=== PATIENT | female | born 1990 | race Caucasian/White ===

== ENCOUNTER 2018-04-30 23:40 | Emergency (ER) | payer SELFPAY ==
[2018-05-01] MEDS ORDERED: Augmentin 875-125 Tablet PO ONE (00:03)
--- NOTE | 2018-05-01 00:09 | ERPHSYRPT ---
- History of Present Illness Time Seen by Provider: 04/30/18 23:54 Source: patient Patient Subjective Stated Complaint: pt co pain, redness, and edema to left 4th finger for approx 1 week; unknown origin; denies any trauma to finger. Triage Nursing Assessment: pt a&o x3; skin p, w, & d; ambulated to room per self ; no other distress at this time. Physician History: PATIENT COMPLAINS OF PAIN, SWELLING WITH REDNESS OF NAIL FOLD OF LEFT RING FINGER OVER THE PAST WEEK. ADMITS TO USING A NEEDLE TO PERFORATE SWELLING OF NAIL FOLD. DENIES FEVER, TRAUMA OR INJURY. Occurred: last week Method of Injury: other (DENIES INJURY) Severity of Pain-Max: mild Extremities Pain Location: 4th finger: left Modifying Factors: Improves With: nothing Associated Symptoms: none Allergies/Adverse Reactions: BEES Allergy (Intermediate, Uncoded 04/30/18 23:56) Swelling Home Medications: Eslicarbazepine Acetate [Aptiom] 1,600 mg PO DAILY 03/03/16 [History] Hx Tetanus, Diphtheria Vaccination/Date Given: Yes Hx Influenza Vaccination/Date Given: No Hx Pneumococcal Vaccination/Date Given: No Immunizations Up to Date: No - Review of Systems Musculoskeletal: Joint Redness, Joint Pain, Joint Swelling Neurological: No Symptoms Psychological: No Symptoms Hematologic/Lymphatic: No Symptoms - Past Medical History Pertinent Past Medical History: Yes Neurological History: Seizures, Other ENT History: No Pertinent History Cardiac History: No Pertinent History Respiratory History: Asthma Endocrine Medical History: No Pertinent History Musculoskeletal History: No Pertinent History GI Medical History: No Pertinent History History: Other Psycho-Social History: Anxiety, Depression, Other Female Reproductive Disorders: Other Other Medical History: brain tumor remove in September 2013 - Past Surgical History Past Surgical History: Yes Neuro Surgical History: Neurological Surgery Cardiac: No Pertinent History Respiratory: No Pertinent History Gastrointestinal: No Pertinent History Genitourinary: No Pertinent History Musculoskeletal: No Pertinent History Female Surgical History: No Pertinent History Other Surgical History: D&C - Social History Smoking Status: Current every day smoker How long have you smoked: 14 years Exposure to second hand smoke: Yes Drug Use: marijuana Patient Lives Alone: No - Female History Hx Last Menstrual Period: 3 weeks ago Hx Now: No - Nursing Vital Signs Nursing Vital Signs: Initial Vital Signs Temperature 98.5 F 04/30/18 23:45 Pulse Rate 90 04/30/18 23:45 Respiratory Rate 16 04/30/18 23:45 Blood Pressure 115/75 04/30/18 23:45 O2 Sat by Pulse Oximetry 98 04/30/18 23:45 Pain Scale Pain Intensity 5 - Physical Exam General Appearance: no apparent distress Hand Exam: infection, soft tissue tenderness, swelling (OF NAIL FOLD PROXIMAL AND RADIAL ASPECT DISTAL PHALANGX LEFT RING FINGER, NO DRAINAGE.) Neuro/Tendon Exam: normal sensation SpO2 Interpretation: normal SpO2: 98 Oxygen Delivery: Room Air - Progress Progress Note: 05/01/18 00:07 ADMINISTERED AUGMENTIN 875MG ORALLY. Counseled pt/family regarding: diagnosis, need for follow-up - Departure Time of Disposition: 00:20 Departure Disposition: Home Clinical Impression: LEFT RING FINGER CELLULITS Condition: Stable Critical Care Time: No Referrals: GHISLAINE DSOUZA [Primary Care Provider] - Additional Instructions: APPLY WARM COMPRESS TO FINGER SWELLING 4 TIMES DAILY FOR 5 DAYS. TYLENOL OR MOTRIN NEEDED FOR PAIN. ANTIBIOTIC AUGMENTIN 875MG TWICE DAILY FOR 10 DAYS. CONSULT YOUR PRIMARY CARE PROVIDER FOR FOLLOWUP IN 4-5 DAYS. RETURN TO EMERGENCY FOR INCREASING INFECTION, REDNESS, SWELLING OR DRAINAGE. Prescriptions: Amox Tr/Potass Clav. 875 mg [Augmentin 875-125 Tablet] 875 mg PO BID #20 tablet
[2018-05-01 00:39] VITALS: BP 141/75; PULSE 78; O2SAT 99
== END 2018-05-01 00:42 | disposition home or self-care (01) ==
LOC: ED 23:40
DX: L03.011 Cellulitis of right finger (principal); M79.644 Pain in right finger(s); R56.9 Unspecified convulsions
CPT/HCPCS: 99283; A9270-GY

== ENCOUNTER 2019-07-26 22:09 | Emergency (ER) | payer OTHER ==
[2019-07-26 23:30] VITALS: BP 111/63; PULSE 71; O2SAT 98
[2019-07-26 23:39] LABS: Appearance CLOUDY (CLEAR); Bacteria MODERATE /HPF (NEGATIVE); Bilirubin NEGATIVE (NEGATIVE); Blood NEGATIVE Ery/ul (0-5); Epithelial Cells RARE /HPF (FEW); Glucose NEGATIVE (NEGATIVE); Ketones NEGATIVE (NEGATIVE); Leukocyte Esterase NEGATIVE (NEGATIVE); Mucus MODERATE /HPF (NEGATIVE); Nitrite POSITIVE (NEGATIVE); Protein,Urine Dip 30 (Negative); Specific Gravity 1.023 (1.005-1.025); Urobilinogen 4 mg/dL (0-1)
[2019-07-26 23:40] LABS: Budding Yeast Few /HPF (NEGATIVE)
[2019-07-26] MEDS ORDERED: BACTRIM DS TABLET PO STA (23:48)
[2019-07-26] MEDS ORDERED: PYRIDIUM 200 MG PO SCH (23:48)
--- NOTE | 2019-07-26 23:52 | ERPHSYRPT ---
- History of Present Illness Time Seen by Provider: 07/26/19 23:00 Source: patient Exam Limitations: no limitations Patient Subjective Stated Complaint: pt states for the last 3 days she has had pressure and discomfort in the bladder area, states she is voiding frequent small amts, and has sharp pain with urination. Triage Nursing Assessment: pt alert and oriented, answers questions approp. pt ambulatory with steady gait noted. respirations nonlabored with lungs cta. no tendernes noted to lower back. urine cloudy and orange. Physician History: Patient has had dysuria, frequency and suprapubic discomfort for the past 3 days. Patient does not get frequent UTIs. She has not been evaluated or treated prior to coming into the emergency department Timing/Duration: day(s) (3) Activites at Onset: none Quality: aching, burning Onset Location: suprapubic Pain Radiation: none Severity of Pain-Max: moderate Severity of Pain-Current: mild Prior abdominal problems: none Modifying Factors: Worsens With: urinating Associated Symptoms: abdominal pain (suprapubic area only), dysuria, urinary frequency, No fever, No chills, No diaphoresis, No nausea, No vomiting, No nocturia, No polyuria, No , No loss of bladder control, No lower back pain, No lumps, No mass, No swelling, No syncope, No vaginal discharge, No vaginal fluid leakage Allergies/Adverse Reactions: BEES Allergy (Intermediate, Uncoded 04/30/18 23:56) Swelling Home Medications: Eslicarbazepine Acetate [Aptiom] 1,600 mg PO DAILY 03/03/16 [History] Hx Tetanus, Diphtheria Vaccination/Date Given: Yes Hx Influenza Vaccination/Date Given: No Hx Pneumococcal Vaccination/Date Given: No - Review of Systems Constitutional: No Fever, No Chills, No Fatigue Eyes: No Eye Pain, No Vision Changes Ears, Nose, & Throat: No Mouth Swelling, No Painful Swallowing Respiratory: No Cough, No Dyspnea Cardiac: No Chest Pain, No Syncope Abdominal/Gastrointestinal: No Nausea, No Vomiting, No Hematemesis, No Hematochezia, No Melena Genitourinary Symptoms: Dysuria, Frequency, No Hematuria, No Urinary Retention, No Flank Pain Musculoskeletal: No Back Pain, No Neck Pain Skin: No Rash, No Skin Lesions Neurological: No Focal Weakness, No Lethargy, No Paralysis, No Parasthesia, No Tremors Psychological: No Anxiety Hematologic/Lymphatic: No Easy Bleeding, No Easy Bruising All Other Systems: Reviewed and Negative - Past Medical History Pertinent Past Medical History: Yes Neurological History: Seizures, Other ENT History: No Pertinent History Cardiac History: No Pertinent History Respiratory History: Asthma Endocrine Medical History: No Pertinent History Musculoskeletal History: No Pertinent History GI Medical History: No Pertinent History History: Other Psycho-Social History: Anxiety, Depression, Other Female Reproductive Disorders: Other Other Medical History: brain tumor remove in September 2013 - Past Surgical History Past Surgical History: Yes Neuro Surgical History: Neurological Surgery Cardiac: No Pertinent History Respiratory: No Pertinent History Gastrointestinal: No Pertinent History Genitourinary: No Pertinent History Musculoskeletal: No Pertinent History Female Surgical History: No Pertinent History Other Surgical History: D&C - Social History Smoking Status: Current every day smoker How long have you smoked: 15 years Exposure to second hand smoke: Yes Drug Use: marijuana Patient Lives Alone: No - Female History Hx Last Menstrual Period: 2 weeks Hx Now: No - Nursing Vital Signs Nursing Vital Signs: Initial Vital Signs Temperature 97.9 F 07/26/19 22:37 Pulse Rate 104 H 07/26/19 22:37 Respiratory Rate 18 07/26/19 22:37 Blood Pressure 115/77 07/26/19 22:37 O2 Sat by Pulse Oximetry 100 07/26/19 22:37 Pain Scale Pain Intensity 0 - Physical Exam General Appearance: no apparent distress, alert Eye Exam: PERRL/EOMI, eyes nml inspection, No scleral icterus Ears, Nose, Throat Exam: pharynx normal, moist mucous membranes Neck Exam: normal inspection, non-tender, supple, full range of motion, No meningismus, No Brudzinski, No limited range of motion Respiratory Exam: normal breath sounds, lungs clear, airway intact, No chest tenderness, No respiratory distress, No diminished breath sounds, No accessory muscle use, No prolonged expirations, No crackles/rales, No rhonchi, No wheezing , No stridor Cardiovascular Exam: regular rate/rhythm, normal heart sounds, normal peripheral pulses, capillary refill <2 sec, No murmur Gastrointestinal/Abdomen Exam: soft, normal bowel sounds, No tenderness, No distention, No mass, No guarding, No ecchymosis, No pulsatile mass, No rebound, No hepatomegaly Extremity Exam: normal inspection, normal range of motion, pelvis stable, No contusions, No calf tenderness, No deformities, No inflammation, No swelling Neurologic Exam: alert, oriented x 3, cooperative, product assurance engineer II-XII nml as tested, normal mood/affect, sensation nml, No motor deficits Skin Exam: normal color, warm, dry, No rash, No petechiae, No cyanosis SpO2 Interpretation: normal SpO2: 98 O2 Delivery: Room Air - Course Nursing assessment & vital signs reviewed: Yes Ordered Tests: Active Orders 24 hr Category Date Time Status CULTURE,URINE Stat Lab 07/26/19 23:00 Received HCG,QUALITATIVE URINE Stat Lab 07/26/19 23:00 Completed UA W/RFX UR CULTURE Stat Lab 07/26/19 23:00 Completed Medication Summary Generic Name Dose Route Start Last Admin Trade Name Horacio PRN Reason Stop Dose Admin Phenazopyridine HCl 200 mg 07/26/19 23:48 07/26/19 23:58 Pyridium 200 Mg PO 08/25/19 23:47 200 mg TID RIO Administration Discontinued Medications Generic Name Dose Route Start Last Admin Trade Name Horacio PRN Reason Stop Dose Admin Trimethoprim/Sulfamethoxazole 1 tab 07/26/19 23:48 07/26/19 23:57 Bactrim Ds Tablet PO 07/26/19 23:49 1 tab STAT STA Administration Trimethoprim/Sulfamethoxazole Confirm 07/26/19 23:56 Bactrim Ds Tablet Administered 07/26/19 23:57 Dose 1 tab PO .RUST-MED ONE Lab/Rad Data: Laboratory Results 07/26/19 07/26/19 Range/Units 23:00 23:00 Urine Color ORANGE (YELLOW) Urine Appearance CLOUDY (CLEAR) Urine pH 7.0 (5-6) Ur Specific [place] 1.023 (1.005-1.025) Urine Protein 30 (Negative) Urine Ketones NEGATIVE (NEGATIVE) Urine Blood NEGATIVE (0-5) Tyshawn/ul Urine Nitrite POSITIVE (NEGATIVE) Urine Bilirubin NEGATIVE (NEGATIVE) Urine Urobilinogen 4 (0-1) mg/dL Ur Leukocyte Esterase NEGATIVE (NEGATIVE) Urine WBC (Auto) 16-25 (0-5) /HPF Urine RBC (Auto) 11-15 (0-2) /HPF U Epithel Cells (Auto) RARE (FEW) /HPF Urine Bacteria (Auto) MODERATE (NEGATIVE) /HPF Calcium Oxalate Crystal 11-25 (NEGATIVE) /HPF Urine Mucus (Auto) MODERATE (NEGATIVE) /HPF Urine Yeast (Budding) Few (NEGATIVE) /HPF Urine Culture Reflexed YES (NO) Urine Glucose NEGATIVE (NEGATIVE) mg/dL Urine HCG, Qual NEGATIVE (Negative) Urine Culture: form 08/27/2014 Positive for E.Coli, susceptible to TMP/SMX - Departure Departure Disposition: Home Clinical Impression: Acute cystitis without hematuria Condition: Good Critical Care Time: No Referrals: GHISLAINE DSOUZA [Primary Care Provider] - Follow Up with PCP/3 days Instructions: Urinary Tract Infection, Adult (DC) Additional Instructions: Your examination and urinalysis were very consistent with a bladder infection. Finish antibiotics. We will notify you if we have to change in antibiotics when we have a urine culture in 2 days. Return immediately back to the emergency department if any new abdominal pain, new flank pain, new fever, or any other concerning signs or symptoms that were not present on today's emergency department visit for immediate reevaluation in the emergency department. Prescriptions: Phenazopyridine HCl 200 mg [Pyridium 200 mg] 200 mg PO TID PRN #6 tablet PRN Reason: Dysuria/Urinary Symptoms Smz/Tmp Ds Tablet [Bactrim Ds Tablet] 1 tab PO Q12H #6 tablet
[2019-07-26] MEDS ORDERED: PYRIDIUM 200 MG ONE (23:56)
[2019-07-26] MEDS ORDERED: BACTRIM DS TABLET PO ONE (23:56)
== END 2019-07-26 23:58 | disposition home or self-care (01) ==
LOC: ED 22:09
DX: N30.00 Acute cystitis without hematuria (principal)
CPT/HCPCS: 81001; 84703; 87086; 99283; A9270-GY

== ENCOUNTER 2019-10-15 20:29 | Emergency (ER) | payer OTHER ==
[2019-10-15 20:46] VITALS: O2SAT 100
--- NOTE | 2019-10-15 21:04 | ERPHSYRPT ---
- History of Present Illness Time Seen by Provider: 10/15/19 20:50 Source: patient Exam Limitations: no limitations Patient Subjective Stated Complaint: pt states, "I was removing a metal roof off of a birdhouse to paint it and as I was pulling a nail out, my arm went against the edge of it, cutting my arm". Triage Nursing Assessment: pt has laceration to rt wrist 1 cm L x 0.2 cm W x 0.1 cm D. Laceration is not bleeding at this time. Physician History: Patient cut her right distal forearm on the pinky side on a nail of a birdhouse prior to coming into the emergency department. Timing/Duration: today, hour(s) (0.5) Quality: other (no pain) Severity: mild Location: extremities (right upper distal forearm only) Possible Causes: other (cut on a nail) Modifying Factors: Improves With: other (direct pressure) Associated Symptoms: No blisters, No change in skin texture, No difficulty breathing, No edema, No flushing, No hives, No malaise, No pallor, No paresthesia, No petechiae, No rash, No swelling/mass/lumps Allergies/Adverse Reactions: BEES Allergy (Intermediate, Uncoded 04/30/18 23:56) Swelling Home Medications: Escitalopram Oxalate 10 mg [Lexapro 10 MG] 10 mg PO DAILY 10/15/19 [History] OXcarbazepine [Oxcarbazepine] 300 mg PO BID 10/15/19 [History] Hx Tetanus, Diphtheria Vaccination/Date Given: Yes Hx Influenza Vaccination/Date Given: No Hx Pneumococcal Vaccination/Date Given: No Immunizations Up to Date: Yes - Review of Systems Constitutional: No Fever, No Chills Eyes: No Eye Pain, No Photophobia, No Vision Changes Ears, Nose, & Throat: No Ear Pain, No Nose Pain, No Epistaxis, No Mouth Swelling , No Painful Swallowing Respiratory: No Cough, No Dyspnea Cardiac: No Chest Pain, No Edema, No Syncope Abdominal/Gastrointestinal: No Abdominal Pain, No Nausea, No Vomiting Genitourinary Symptoms: No Flank Pain Musculoskeletal: No Back Pain, No Neck Pain, No Fall Skin: No Rash Neurological: No Dizziness, No Focal Weakness, No Headache, No Parasthesia, No Sensory Changes Psychological: No Symptoms Endocrine: No Excessive Sweating Hematologic/Lymphatic: No Easy Bleeding, No Easy Bruising All Other Systems: Reviewed and Negative - Past Medical History Pertinent Past Medical History: Yes Neurological History: Seizures, Other ENT History: No Pertinent History Cardiac History: No Pertinent History Respiratory History: Asthma Endocrine Medical History: No Pertinent History Musculoskeletal History: No Pertinent History GI Medical History: No Pertinent History History: Other Psycho-Social History: Anxiety, Other Female Reproductive Disorders: Other Other Medical History: brain tumor remove in September 2013. UTI's - Past Surgical History Past Surgical History: Yes Neuro Surgical History: Neurological Surgery Cardiac: No Pertinent History Respiratory: No Pertinent History Gastrointestinal: No Pertinent History Genitourinary: No Pertinent History Musculoskeletal: No Pertinent History Female Surgical History: No Pertinent History Other Surgical History: D&C - Social History Smoking Status: Current every day smoker How long have you smoked: 12 yrs Exposure to second hand smoke: Yes Drug Use: marijuana Patient Lives Alone: No - Female History Hx Last Menstrual Period: 1 week ago Hx Now: No - Nursing Vital Signs Nursing Vital Signs: Initial Vital Signs Temperature 97.9 F 10/15/19 20:45 Pulse Rate 88 10/15/19 20:45 Respiratory Rate 17 10/15/19 20:45 Blood Pressure 139/79 10/15/19 20:45 O2 Sat by Pulse Oximetry 100 10/15/19 20:45 Pain Scale Pain Intensity 4 - Physical Exam General Appearance: no apparent distress, alert Eye Exam: PERRL/EOMI, eyes nml inspection Ears, Nose, Throat Exam: normal ENT inspection, pharynx normal, moist mucous membranes Neck Exam: normal inspection, non-tender, supple, full range of motion Respiratory Exam: normal breath sounds, lungs clear, airway intact, No respiratory distress Cardiovascular Exam: regular rate/rhythm, normal heart sounds, normal peripheral pulses, capillary refill <2 sec Gastrointestinal/Abdomen Exam: soft, No tenderness Back Exam: normal inspection, normal range of motion, No CVA tenderness, No vertebral tenderness Extremity Exam: normal inspection, normal range of motion Neurologic Exam: alert, oriented x 3, cooperative, rvda master certified rv 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 II-XII nml as tested, normal mood/affect, sensation nml, No motor deficits Skin Exam: normal color, warm, dry, laceration (only location: to the right distal forearm on the ulnar side, 2.2cm, subcutaneous; no foreign body, no active bleeding) SpO2 Interpretation: normal SpO2: 100 O2 Delivery: Room Air Procedures - Laceration/Wound Repair Right Proximal Wrist Wound Location: Right, lower arm Wound Length (cm): 2.2 Wound's Depth, Shape: linear, into subcut Wound Explored: clean Irrigated: Yes Hibiclens Prep: Yes Volume Anesthetic (ccs): 0 Wound Debrided: none Wound Repaired With: Dermabond Layer Closure?: No Sterile Dressing Applied?: Yes Splint Applied?: No Ordered Tests: Active Orders 24 hr Category Date Time Status Miscellaneous Nursing Order ROUTINE Care 10/15/19 20:56 Ordered - Progress Progress: improved Progress Note: 10/15/19 21:09 the patient had excellent re-approximation of wound edges with no further opening, bleeding, or any other abnormalities, Patient is neurovascularly intact distally to the laceration site repair. Counseled pt/family regarding: diagnosis, need for follow-up - Departure Departure Disposition: Home Clinical Impression: Elevated blood pressure reading without diagnosis of hypertension Laceration of right forearm without complication Qualifiers: Encounter type: initial encounter Qualified Code(s): S51.811A - Laceration without foreign body of right forearm, initial encounter Condition: Good Critical Care Time: Yes Referrals: GHISLAINE DSOUZA [Primary Care Provider] - Follow Up with PCP/3 days Instructions: Laceration Repair With Glue (DC), Tdap Vaccine Additional Instructions: You had your tetanus boosted today in the emergency department. You had your laceration repaired with Dermabond. Followup or return back to emergency department if you have any opening of the wound, bleeding from the wound, redness from the wound, streaking of the wound, fever, loss of function in the hand or wrist, loss of sensation of the hand or wrist or any other concerning signs or symptoms that were not present at today's emergency department visit for immediate reevaluation in the emergency department.
[2019-10-15] MEDS ORDERED: Adacel Vial IM ONE ×2 (21:05→21:06)
[2019-10-15 21:17] VITALS: BP 131/75; PULSE 94
== END 2019-10-15 21:26 | disposition home or self-care (01) ==
LOC: ED 20:29
DX: S51.811A Laceration without foreign body of right forearm, initial encounter (principal); W26.8XXA Contact with other sharp object(s), not elsewhere classified, initial encounter; F12.90 Cannabis use, unspecified, uncomplicated; Z72.0 Tobacco use; Z23 Encounter for immunization; A35 Other tetanus
CPT/HCPCS: 12001; 90471; 90715; 99283

== ENCOUNTER 2020-05-05 06:47 | Emergency (ER) | payer OTHER ==
--- NOTE | 2020-05-05 07:09 | ERPHSYRPT ---
- History of Present Illness Time Seen by Provider: 05/05/20 07:00 Source: patient, EMS Exam Limitations: clinical condition Physician History: This is a 29-year-old white female who is homeless, per her report, who has a history of seizures 1-2 times a month. She takes Lexapro and Tegretol. However, she had a seizure last night and another one this morning. She fell and hit her head this morning. Patient states that yesterday she was at her sister's house and yesterday evening was staying at a friend's house. Patient denies illicit drug use. Patient takes Tegretol as well as Lamictal for her seizures. Patient arrives via EMS very sleepy and lethargic. She is rousable. Patient denies chest pain she denies shortness of breath she denies abdominal pain. She denies nausea vomiting or diarrhea. Timing/Duration: today Severity: moderate Character of Deficits: none Current Cognition: poor alertness (Easily arousable then oriented x3) Baseline Gait: walks w/o assistance Associated Symptoms: other (Lethargic) Allergies/Adverse Reactions: BEES Allergy (Intermediate, Uncoded 04/30/18 23:56) Swelling Home Medications: Escitalopram Oxalate 10 mg [Lexapro 10 MG] 10 mg PO DAILY 10/15/19 [History] OXcarbazepine [Oxcarbazepine] 300 mg PO BID 10/15/19 [History] Hx Tetanus, Diphtheria Vaccination/Date Given: Yes Hx Influenza Vaccination/Date Given: No Hx Pneumococcal Vaccination/Date Given: No Travel Risk - International Travel Have you traveled outside of the country in past 3 weeks: No - Coronavirus Screening Are you exhibiting any of the following symptoms?: No Close contact with a COVID-19 positive Pt in past 14-21 Days: No - Review of Systems Constitutional: Lethargy Eyes: No Symptoms Ears, Nose, & Throat: No Symptoms Respiratory: No Symptoms Cardiac: No Symptoms Abdominal/Gastrointestinal: No Symptoms Genitourinary Symptoms: No Symptoms Musculoskeletal: No Symptoms Skin: Other (Right forehead hematoma) Neurological: No Symptoms Psychological: No Symptoms Endocrine: No Symptoms Hematologic/Lymphatic: No Symptoms Immunological/Allergic: No Symptoms All Other Systems: Reviewed and Negative - Past Medical History Pertinent Past Medical History: Yes Neurological History: Seizures, Other ENT History: No Pertinent History Cardiac History: No Pertinent History Respiratory History: Asthma Endocrine Medical History: No Pertinent History Musculoskeletal History: No Pertinent History GI Medical History: No Pertinent History History: Other Psycho-Social History: Anxiety, Other Female Reproductive Disorders: Other Other Medical History: brain tumor remove in September 2013. UTI's - Past Surgical History Past Surgical History: Yes Neuro Surgical History: Neurological Surgery Cardiac: No Pertinent History Respiratory: No Pertinent History Gastrointestinal: No Pertinent History Genitourinary: No Pertinent History Musculoskeletal: No Pertinent History Female Surgical History: No Pertinent History Other Surgical History: D&C - Social History Smoking Status: Current every day smoker How long have you smoked: 12 yrs Exposure to second hand smoke: Yes Drug Use: marijuana Patient Lives Alone: No - Nursing Vital Signs Nursing Vital Signs: Initial Vital Signs Temperature 98.3 F 05/05/20 06:47 Pulse Rate 81 05/05/20 06:47 Respiratory Rate 18 05/05/20 06:47 Blood Pressure 123/76 05/05/20 06:47 O2 Sat by Pulse Oximetry 100 05/05/20 06:47 Pain Scale Pain Intensity 7 - [place] Coma Scale Best Eye Response ([place]): (3) open to voice Best Verbal Response ([place]): (5) oriented Best Motor Response ([place]): (6) obeys commands [place] Total: 14 - Physical Exam General Appearance: lethargy (But arousable) Eye Exam: bilateral eye: normal inspection, PERRL, EOMI Ears, Nose, Throat Exam: normal ENT inspection, moist mucous membranes Neck Exam: normal inspection, non-tender, supple, full range of motion Respiratory: normal breath sounds, lungs clear, airway intact, No chest tenderness, No respiratory distress Gastrointestinal: soft, normal bowel sounds, No tenderness Pelvic Exam: not done Rectal Exam: not done Back Exam: normal inspection, normal range of motion, No CVA tenderness, No vertebral tenderness Extremity Exam: normal inspection, normal range of motion, pelvis stable Mental Status: intoxicated appearance, lethargy (Arousable) 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 Exam: normal hearing, PERRL, tongue midline Motor/Sensory: no motor deficit, no sensory deficit, no pronator drift Skin Exam: warm, dry, other (Contusion hematoma right forehead) SpO2 Interpretation: normal O2 Delivery: Room Air Ordered Tests: Active Orders 24 hr Category Date Time Status Manager Creative STAT Care 05/05/20 07:11 Active Clean Catch Urine Specimen STAT Care 05/05/20 07:09 Active IV Insertion STAT Care 05/05/20 07:09 Active HEAD WITHOUT CONTRAST [CT] Stat Exams 05/05/20 07:27 Completed CBC W DIFF Stat Lab 05/05/20 06:57 Completed CMP Stat Lab 05/05/20 06:57 Completed HCG,QUALITATIVE URINE Stat Lab 05/05/20 08:47 Completed UA W/RFX UR CULTURE Stat Lab 05/05/20 08:46 Completed Urine Triage Profile Stat Lab 05/05/20 08:46 Completed Medication Summary Discontinued Medications Generic Name Dose Route Start Last Admin Trade Name Horacio PRN Reason Stop Dose Admin Lorazepam 1 mg 05/05/20 07:09 05/05/20 07:24 Ativan 2 Mg/1 Ml Vial IV 05/05/20 07:10 1 mg STAT ONE Administration Lorazepam Confirm 05/05/20 07:23 Ativan 2 Mg/1 Ml Vial Administered 05/05/20 07:24 Dose 2 mg .ROUTE .STK-MED ONE Lab/Rad Data: Laboratory Result Diagrams 05/05/20 06:57 05/05/20 06:57 Laboratory Results 05/05/20 05/05/20 05/05/20 Range/Units 08:47 08:46 08:46 WBC (4.0-10.5) K/mm3 RBC (4.1-5.4) M/mm3 Hgb (12.0-16.0) gm/dl Hct (35-47) % MCV (78-100) fl MCH (26-32) pg MCHC (32-36) g/dl RDW (11.5-14.0) % Plt Count (150-450) K/mm3 MPV (7.5-11.0) fl Gran % (36.0-66.0) % Eos # (Auto) (0-0.5) Absolute Lymphs (auto) (1.0-4.6) Absolute Monos (auto) (0.0-1.3) Lymphocytes % (24.0-44.0) % Monocytes % (0.0-12.0) % Eosinophils % (0.00-5.0) % Basophils % (0.0-0.4) % Absolute Granulocytes (1.4-6.9) Basophils # (0-0.4) Sodium (137-145) mmol/L Potassium (3.5-5.1) mmol/L Chloride (98-107) mmol/L Carbon Dioxide (22-30) mmol/L Anion Gap (5-15) MEQ/L BUN (7-17) mg/dL Creatinine (0.52-1.04) mg/dL Estimated GFR ML/MIN Glucose (74-106) mg/dL Calcium (8.4-10.2) mg/dL Total Bilirubin (0.2-1.3) mg/dL AST (14-36) U/L ALT (0-35) U/L Alkaline Phosphatase (38-126) U/L Serum Total Protein (6.3-8.2) g/dL Albumin (3.5-5.0) g/dL Urine Color YELLOW (YELLOW) Urine Appearance CLEAR (CLEAR) Urine pH 6.0 (5-6) Ur Specific [place] 1.019 (1.005-1.025) Urine Protein 30 (Negative) Urine Ketones NEGATIVE (NEGATIVE) Urine Blood NEGATIVE (0-5) Tyshawn/ul Urine Nitrite NEGATIVE (NEGATIVE) Urine Bilirubin NEGATIVE (NEGATIVE) Urine Urobilinogen NEGATIVE (0-1) mg/dL Ur Leukocyte Esterase NEGATIVE (NEGATIVE) Urine WBC (Auto) NONE (0-5) /HPF Urine RBC (Auto) NONE (0-2) /HPF U Epithel Cells (Auto) RARE (FEW) /HPF Urine Bacteria (Auto) NONE (NEGATIVE) /HPF Urine Mucus (Auto) SLIGHT (NEGATIVE) /HPF Urine Culture Reflexed NO (NO) Urine Glucose NEGATIVE (NEGATIVE) mg/dL Urine HCG, Qual NEGATIVE (Negative) Urine Opiates Level NEGATIVE (NEGATIVE) Ur Methadone NEGATIVE (NEGATIVE) Urine Barbiturates NEGATIVE (NEGATIVE) Carbamazepine (4.0-12.0) ug/mL Ur Phencyclidine (PCP) NEGATIVE (NEGATIVE) Urine Amphetamine POSITIVE (NEGATIVE) U Benzodiazepine Level NEGATIVE (NEGATIVE) Urine Cocaine NEGATIVE (NEGATIVE) Urine Marijuana (THC) POSITIVE (NEGATIVE) 05/05/20 05/05/20 05/05/20 Range/Units 06:57 06:57 06:57 WBC 13.7 H (4.0-10.5) K/mm3 RBC 3.94 L (4.1-5.4) M/mm3 Hgb 13.2 (12.0-16.0) gm/dl Hct 38.3 (35-47) % MCV 97.2 (78-100) fl MCH 33.5 H (26-32) pg MCHC 34.5 (32-36) g/dl RDW 13.2 (11.5-14.0) % Plt Count 362 (150-450) K/mm3 MPV 10.3 (7.5-11.0) fl Gran % 77.5 H (36.0-66.0) % Eos # (Auto) 0.06 (0-0.5) Absolute Lymphs (auto) 2.05 (1.0-4.6) Absolute Monos (auto) 0.97 (0.0-1.3) Lymphocytes % 14.9 L (24.0-44.0) % Monocytes % 7.1 (0.0-12.0) % Eosinophils % 0.4 (0.00-5.0) % Basophils % 0.1 (0.0-0.4) % Absolute Granulocytes 10.62 H (1.4-6.9) Basophils # 0.02 (0-0.4) Sodium 137 (137-145) mmol/L Potassium 3.4 L (3.5-5.1) mmol/L Chloride 106 (98-107) mmol/L Carbon Dioxide 24 (22-30) mmol/L Anion Gap 10.8 (5-15) MEQ/L BUN 14 (7-17) mg/dL Creatinine 0.62 (0.52-1.04) mg/dL Estimated GFR > 60.0 ML/MIN Glucose 99 (74-106) mg/dL Calcium 9.0 (8.4-10.2) mg/dL Total Bilirubin 0.50 (0.2-1.3) mg/dL AST 19 (14-36) U/L ALT 12 (0-35) U/L Alkaline Phosphatase 72 (38-126) U/L Serum Total Protein 7.6 (6.3-8.2) g/dL Albumin 4.6 (3.5-5.0) g/dL Urine Color (YELLOW) Urine Appearance (CLEAR) Urine pH (5-6) Ur Specific [place] (1.005-1.025) Urine Protein (Negative) Urine Ketones (NEGATIVE) Urine Blood (0-5) Tyshawn/ul Urine Nitrite (NEGATIVE) Urine Bilirubin (NEGATIVE) Urine Urobilinogen (0-1) mg/dL Ur Leukocyte Esterase (NEGATIVE) Urine WBC (Auto) (0-5) /HPF Urine RBC (Auto) (0-2) /HPF U Epithel Cells (Auto) (FEW) /HPF Urine Bacteria (Auto) (NEGATIVE) /HPF Urine Mucus (Auto) (NEGATIVE) /HPF Urine Culture Reflexed (NO) Urine Glucose (NEGATIVE) mg/dL Urine HCG, Qual (Negative) Urine Opiates Level (NEGATIVE) Ur Methadone (NEGATIVE) Urine Barbiturates (NEGATIVE) Carbamazepine < 3.0 L (4.0-12.0) ug/mL Ur Phencyclidine (PCP) (NEGATIVE) Urine Amphetamine (NEGATIVE) U Benzodiazepine Level (NEGATIVE) Urine Cocaine (NEGATIVE) Urine Marijuana (THC) (NEGATIVE) - Progress Progress: improved, re-examined Progress Note: 05/05/20 09:45 CAT scan of the head reveals no acute intracranial abnormality. Discussed with : Rola Counseled pt/family regarding: lab results, diagnosis, need for follow-up, rad results - Departure Departure Disposition: Home Clinical Impression: Head injury, Recurrent seizures, Noncompliance with medication regimen, Methamphetamine intoxication, Marijuana use Condition: Stable Critical Care Time: No Referrals: GHISLAINE DSOUZA [Primary Care Provider] - Additional Instructions: Take your medications as prescribed. Avoid all other medications. Avoid illicit drugs. Follow-up with your neurologist today. Call to make an appointment.
[2020-05-05] MEDS ORDERED: Ativan 2 MG/1 ML VIAL ONE (07:23)
[2020-05-05] MEDS: Ativan 2 MG/1 ML VIAL IV ONE (07:24)
[2020-05-05 07:41] LABS: Absolute Neutrophil Ct (ANC) 10.62 (1.4-6.9); BASOPHIL % 0.1 % (0.0-0.4); Basophil (Absolute #) 0.02 (0-0.4); Eosinophil % 0.4 % (0.00-5.0); Eosinophil (Absolute #) 0.06 (0-0.5); Hematocrit 38.3 % (35-47); Hemoglobin 13.2 gm/dl (12.0-16.0); Lymphocyte (Absolute #) 2.05 (1.0-4.6); Lymphocytes % 14.9 % (24.0-44.0); Mean Cell Volume 97.2 fl (78-100); Mean Corpuscular Hemoglobin 33.5 pg (26-32); Mean Corpuscular Hgb Concent. 34.5 g/dl (32-36); Mean Platelet Volume 10.3 fl (7.5-11.0); Monocyte (Absolute #) 0.97 (0.0-1.3); Monocytes % 7.1 % (0.0-12.0); Neutrophil % 77.5 % (36.0-66.0); Platelet Count 362 K/mm3 (150-450); Red Blood Count 3.94 M/mm3 (4.1-5.4); Red Cell Distribution Width 13.2 % (11.5-14.0); White Blood Count 13.7 K/mm3 (4.0-10.5)
[2020-05-05 07:46] LABS: ALBUMIN 4.6 g/dL (3.5-5.0); ALKALINE PHOSPHATASE 72 U/L (38-126); ANION GAP 10.8 MEQ/L (5-15); BLOOD UREA NITROGEN 14 mg/dL (7-17); CHLORIDE 106 mmol/L (98-107); Carbon Dioxide 24 mmol/L (22-30); Creatinine 1 0.62 mg/dL (0.52-1.04); Glucose 99 mg/dL (74-106); Potassium 3.4 mmol/L (3.5-5.1); SGOT/AST 19 U/L (14-36); SGPT/ALT 12 U/L (0-35); SODIUM 137 mmol/L (137-145); Total Protein 7.6 g/dL (6.3-8.2)
[2020-05-05 08:48] LABS: Appearance CLEAR (CLEAR); Bilirubin NEGATIVE (NEGATIVE); Blood NEGATIVE Ery/ul (0-5); Epithelial Cells RARE /HPF (FEW); Glucose NEGATIVE (NEGATIVE); Ketones NEGATIVE (NEGATIVE); Leukocyte Esterase NEGATIVE (NEGATIVE); Mucus SLIGHT /HPF (NEGATIVE); Nitrite NEGATIVE (NEGATIVE); Protein,Urine Dip 30 (Negative); Specific Gravity 1.019 (1.005-1.025); Urobilinogen NEGATIVE mg/dL (0-1)
--- NOTE | 2020-05-05 09:13 | XRAY ---
Indication: Status post fall following seizure. Multiple contiguous axial images obtained through the head without contrast. Comparison: August 27, 2014. Stable right temporal lobe encephalomalacia with overlying temporoparietal craniotomy. Right basal ganglia now demonstrates 7 mm dystrophic calcification anteriorly. No acute intracranial hemorrhage, abnormal extra-axial fluid collection, or mass effect. Fourth ventricle is midline without hydrocephalus. Hunter-white matter differentiation preserved. Remaining bony calvarium intact. Visualized paranasal sinuses and mastoid air cells are clear. Impression: 1. Stable right temporoparietal craniotomy and right temporal lobe encephalomalacia. New right basal ganglia dystrophic calcification. 2. No acute intracranial abnormalities.
[2020-05-05 10:15] LABS: Amphetamine,Urine POSITIVE (NEGATIVE); Barbiturate,Urine NEGATIVE (NEGATIVE); Benzodiazepine,Urine NEGATIVE (NEGATIVE); Cocaine,Urine NEGATIVE (NEGATIVE); Methadone,Urine NEGATIVE (NEGATIVE); Opiate,Urine NEGATIVE (NEGATIVE); PCP,Urine NEGATIVE (NEGATIVE); THC,Urine POSITIVE (NEGATIVE)
[2020-05-05 10:20] VITALS: O2SAT 99
[2020-05-05 11:40] VITALS: BP 106/64; PULSE 57
== END 2020-05-05 11:48 | disposition home or self-care (01) ==
LOC: ED 06:47
DX: S09.90XA Unspecified injury of head, initial encounter (principal); W18.30XA Fall on same level, unspecified, initial encounter; Y93.9 Activity, unspecified; Y92.9 Unspecified place or not applicable; G40.909 Epilepsy, unspecified, not intractable, without status epilepticus; F41.9 Anxiety disorder, unspecified; Z72.0 Tobacco use; Z91.14 Patient's other noncompliance with medication regimen; F15.929 Other stimulant use, unspecified with intoxication, unspecified; F12.90 Cannabis use, unspecified, uncomplicated; F19.90 Other psychoactive substance use, unspecified, uncomplicated
CPT/HCPCS: 36000; 36415; 70450; 80053; 80156; 80307; 81001; 84703; 85025; 93041; 96374; 99284; J2060

== ENCOUNTER 2021-04-18 00:34 | Observation (INO) | payer OTHER ==
[2021-04-18 01:10] LABS: Hematocrit 36.8 % (35-47); Hemoglobin 11.7 gm/dl (12.0-16.0); Mean Cell Volume 94.1 fl (78-100); Mean Corpuscular Hemoglobin 29.9 pg (26-32); Mean Corpuscular Hgb Concent. 31.8 g/dl (32-36); Mean Platelet Volume 9.5 fl (7.5-11.0); Platelet Count 360 K/mm3 (150-450); Red Blood Count 3.91 M/mm3 (4.1-5.4)
[2021-04-18] MEDS ORDERED: TORAdol 30 mg Injection IV ONE (01:14)
[2021-04-18 01:16] LABS: ALKALINE PHOSPHATASE 86 U/L (38-126); AMYLASE 35 U/L (30-110); ANION GAP 14.8 MEQ/L (5-15); BLOOD UREA NITROGEN 17 mg/dL (7-17); CHLORIDE 101 mmol/L (98-107); Carbon Dioxide 24 mmol/L (22-30); Creatinine 1 0.57 mg/dL (0.52-1.04); EST GLOMERULAR FILTRATION RATE > 60.0 ML/MIN; Glucose 115 mg/dL (74-106); LIPASE 38 U/L (23-300); SGOT/AST 22 U/L (14-36); SGPT/ALT 12 U/L (0-35); SODIUM 137 mmol/L (137-145); Total Protein 7.1 g/dL (6.3-8.2)
[2021-04-18] MEDS ORDERED: TORAdol 30 mg Injection ONE (01:17)
[2021-04-18 01:20] LABS: Appearance SLIGHTLY CLOUDY (CLEAR); Bacteria FEW /HPF (NEGATIVE); Bilirubin NEGATIVE (NEGATIVE); Blood SMALL Ery/ul (0-5); Epithelial Cells RARE /HPF (FEW); Glucose NEGATIVE (NEGATIVE); Ketones TRACE (NEGATIVE); Leukocyte Esterase MODERATE (NEGATIVE); Mucus MANY /HPF (NEGATIVE); Nitrite NEGATIVE (NEGATIVE); Protein,Urine Dip 30 (Negative); Specific Gravity 1.026 (1.005-1.025); Urobilinogen 2 mg/dL (0-1); WBC 51-100 /HPF (0-5)
--- NOTE | 2021-04-18 01:20 | ERPHSYRPT ---
- History of Present Illness Historian: patient Exam Limitations: no limitations Patient Subjective Stated Complaint: "My stomach hurts." Triage Nursing Assessment: 30 y/o female with history of miscarriage x1, D&C, seizure d/t brain tumor, anxiety, and depression. She reported having lower abdominal pain x2 days without nausea/vomiting or constipation. She reported two episodes of diarrhea. She also reported starting her menstrual cycle three weeks ago and has been spotting since then. Pupils 3mm bilateral. Symmetrical chest expansion. heart tones S1/S2 RRR. Lungs vesicular throghought all [place] and with adequate airflow. Abdomen soft non-distended with bowel sounds in all quadrants. Tenderness and guarding to the LLQ/RLQ. No CVA tenderness. Physician History: 30 yo wf w generalized abdominal pain x 2 days. Pain is 9/10 and sharp/stabbing. She has has some mild dysuria wo hematuria/fever/N/V. Pt has mild diarrhea wo melena/hematochezia. Timing/Duration: yesterday Activities at Onset: none Quality: sharpness, stabbing Abdominal Pain Onset Location: generalized abdomen Pain Radiation: no radiation Severity of Pain-Max: severe Severity of Pain-Current: severe Modifying Factors: Improves With: urinating. Worsens With: analgesics, antacids, breathing, coughing, defecating, eating, exercise, lying down, movement, palpation, rest, vomiting, position, walking Associated Symptoms: diarrhea, No back, No chest pain, No diaphoresis, No fever/chills, No fatigue, No headache, No heartburn, No loss of appetite, No nausea, No neck pain, No rash, No shortness of breath, No syncope, No vomiting, No weakness Previous symptoms: same symptoms as today (w UTI) Allergies/Adverse Reactions: BEES Allergy (Intermediate, Uncoded 04/18/21 00:43) Swelling Home Medications: Escitalopram Oxalate 10 mg [Lexapro 10 MG] 20 mg PO DAILY 10/15/19 [History] OXcarbazepine [Oxcarbazepine] 900 mg PO BID 10/15/19 [History] Hx Tetanus, Diphtheria Vaccination/Date Given: Yes Hx Influenza Vaccination/Date Given: No Hx Pneumococcal Vaccination/Date Given: No Travel Risk - International Travel Have you traveled outside of the country in past 3 weeks: No - Coronavirus Screening Are you exhibiting any of the following symptoms?: No Close contact with a COVID-19 positive Pt in past 14-21 Days: No - Vaccine Status Have you recieved a Covid-19 vaccination: Yes Color 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: Moderna - Vaccination Dates Date of 2cond Vaccination (if applicable): 02/18/21 - Review of Systems Constitutional: No Symptoms Eyes: No Symptoms Ears, Nose, & Throat: No Symptoms Respiratory: No Symptoms Cardiac: No Symptoms Abdominal/Gastrointestinal: Abdominal Pain Genitourinary Symptoms: Dysuria Musculoskeletal: No Symptoms Skin: No Symptoms Neurological: No Symptoms Psychological: No Symptoms Endocrine: No Symptoms Hematologic/Lymphatic: No Symptoms Immunological/Allergic: No Symptoms - Past Medical History Pertinent Past Medical History: Yes Neurological History: Seizures, Other ENT History: No Pertinent History Cardiac History: No Pertinent History Respiratory History: Asthma Endocrine Medical History: No Pertinent History Musculoskeletal History: No Pertinent History GI Medical History: No Pertinent History History: Other Psycho-Social History: Anxiety, Depression, Other Female Reproductive Disorders: Other Other Medical History: brain tumor remove in September 2013. UTI's - Past Surgical History Past Surgical History: Yes Neuro Surgical History: Neurological Surgery Cardiac: No Pertinent History Respiratory: No Pertinent History Gastrointestinal: No Pertinent History Genitourinary: No Pertinent History Musculoskeletal: No Pertinent History Female Surgical History: No Pertinent History Other Surgical History: D&C - Social History Smoking Status: Current every day smoker How long have you smoked: 12 yrs Exposure to second hand smoke: Yes Drug Use: marijuana Patient Lives Alone: No Significant Family History: no pertinent family hx - Female History Hx Last Menstrual Period: 04-26-21 Hx Now: No - Nursing Vital Signs Nursing Vital Signs: Initial Vital Signs Pulse Rate 93 H 04/18/21 01:35 Blood Pressure 100/67 04/18/21 01:35 O2 Sat by Pulse Oximetry 100 04/18/21 01:35 Pain Scale Pain Intensity 3 - Physical Exam General Appearance: no apparent distress Eye Exam: PERRL/EOMI, eyes nml inspection Ears, Nose, Throat Exam: normal ENT inspection, TMs normal, pharynx normal Neck Exam: normal inspection, non-tender, supple, full range of motion Respiratory Exam: normal breath sounds, lungs clear, airway intact, No chest tenderness Cardiovascular Exam: regular rate/rhythm, normal heart sounds, normal peripheral pulses, No murmur Gastrointestinal/Abdomen Exam: soft, normal bowel sounds, tenderness (LLQ>RLQ) Back Exam: normal inspection, normal range of motion, CVA tenderness Extremity Exam: normal inspection, normal range of motion Neurologic Exam: alert, oriented x 3, cooperative, hospitalist physician II-XII nml as tested, normal mood/affect, sensation nml Skin Exam: normal color, warm, dry, No rash Lymphatic Exam: No adenopathy - Course Nursing assessment & vital signs reviewed: Yes - CT Exams Abdomen/Pelvis CT Interpretation: Tele-radiologist Report (Nonspecific findings) Ordered Tests: Active Orders 24 hr Category Date Time Status Bedrest with BRP/BSC ROUTINE Activity 04/18/21 04:37 Ordered Code Status Order ROUTINE Care 04/18/21 04:36 Ordered IV Care Q6H Care 04/18/21 04:36 Ordered Intake and Output Q12H Care 04/18/21 04:[address] in Observation ROUTINE Care 04/18/21 04:36 Ordered Vital Signs Q4H Care 04/18/21 04:35 Ordered Clear Liquid Diet 04/18/21 Breakfast Ordered ABDOMEN AND PELVIS W/0 CONTRAS [CT] Stat Exams 04/18/21 01:30 Taken AMYLASE Stat Lab 04/18/21 01:06 Completed BLOOD CULTURE Stat Lab 04/18/21 Ordered CBC W DIFF AM.LAB Lab 04/19/21 04:00 Ordered CBC W DIFF Stat Lab 04/18/21 01:06 Completed CMP AM.LAB Lab 04/19/21 04:00 Ordered CMP Stat Lab 04/18/21 01:06 Completed CULTURE,URINE Stat Lab 04/18/21 01:06 Received HCG QUALITATIVE,SERUM Stat Lab 04/18/21 01:06 Completed LIPASE Stat Lab 04/18/21 01:06 Completed Manual Differential NC Stat Lab 04/18/21 01:06 Completed UA W/RFX UR CULTURE Stat Lab 04/18/21 01:06 Completed Urine Triage Profile Stat Lab 04/18/21 03:50 Ordered Transfer Order Routine Transfer 04/18/21 Ordered Medication Summary Generic Name Dose Route Start Last Admin Trade Name Freq PRN Reason Stop Dose Admin Enoxaparin Sodium 40 mg 04/18/21 10:00 Enoxaparin Sodium SQ 05/18/21 09:59 DAILY RIO Sodium Chloride 1,000 mls @ 999 mls/hr 04/18/21 04:24 04/18/21 04:26 Sodium Chloride 0.9% 1000 Ml IV 04/18/21 05:24 999 mls/hr .Q1H1M STA Administration Potassium Chloride/Sodium Chloride 1,000 mls @ 100 mls/hr 04/18/21 04:45 Sodium Chloride 0.9% W/ 20 Meq Kcl/Liter IV 05/18/21 04:44 .Q10H RIO Ceftriaxone Sodium/Dextrose 1 g in 50 mls @ 100 mls/hr 04/18/21 10:00 Rocephin 1 Gm-D5w 50 Ml Bag IV 04/21/21 09:59 Q24H10 RIO Ketorolac Tromethamine 30 mg 04/18/21 04:35 Toradol 30 Mg Injection IV 04/23/21 04:34 Q6H PRN PRN PAIN Ondansetron HCl 4 mg 04/18/21 04:35 Zofran 4 Mg/2 Ml Vial IV 05/18/21 04:34 Q6H PRN PRN NAUSEA/VOMITING Pantoprazole Sodium 40 mg 04/18/21 10:00 Protonix 40 Mg Iv IV 05/18/21 09:59 Q24H10 RIO Discontinued Medications Generic Name Dose Route Start Last Admin Trade Name Freq PRN Reason Stop Dose Admin Ceftriaxone Sodium/Dextrose 1 g in 50 mls @ 100 mls/hr 04/18/21 02:45 04/18/21 03:49 Rocephin 1 Gm-D5w 50 Ml Bag IV 04/18/21 03:14 Infused STAT STA Infusion Ceftriaxone Sodium/Dextrose Confirm 04/18/21 02:47 Rocephin 1 Gm-D5w 50 Ml Bag Administered 04/18/21 02:48 Dose 1 g in 50 mls @ ud IV .STK-MED ONE Sodium Chloride Confirm 04/18/21 04:25 Sodium Chloride 0.9% 1000 Ml Administered 04/18/21 04:26 Dose 1,000 mls @ ud .ROUTE .STK-MED ONE Ketorolac Tromethamine 30 mg 04/18/21 01:14 04/18/21 01:20 Toradol 30 Mg Injection IV 04/18/21 01:15 30 mg STAT ONE Administration Ketorolac Tromethamine Confirm 04/18/21 01:17 Toradol 30 Mg Injection Administered 04/18/21 01:18 Dose 30 mg .ROUTE .STK-MED ONE Lab/Rad Data: Laboratory Result Diagrams 04/18/21 01:06 04/18/21 01:06 Laboratory Results 04/18/21 04/18/21 04/18/21 Range/Units 01:06 01:06 01:06 WBC 27.9 H* (4.0-10.5) K/mm3 RBC 3.91 L (4.1-5.4) M/mm3 Hgb 11.7 L (12.0-16.0) gm/dl Hct 36.8 (35-47) % MCV 94.1 (78-100) fl MCH 29.9 (26-32) pg MCHC 31.8 L (32-36) g/dl RDW 14.0 (11.5-14.0) % Plt Count 360 (150-450) K/mm3 MPV 9.5 (7.5-11.0) fl Sodium 137 (137-145) mmol/L Potassium 3.0 L* (3.5-5.1) mmol/L Chloride 101 (98-107) mmol/L Carbon Dioxide 24 (22-30) mmol/L Anion Gap 14.8 (5-15) MEQ/L BUN 17 (7-17) mg/dL Creatinine 0.57 (0.52-1.04) mg/dL Estimated GFR > 60.0 ML/MIN Glucose 115 H (74-106) mg/dL Calcium 9.0 (8.4-10.2) mg/dL Total Bilirubin 0.30 (0.2-1.3) mg/dL AST 22 (14-36) U/L ALT 12 (0-35) U/L Alkaline Phosphatase 86 (38-126) U/L Serum Total Protein 7.1 (6.3-8.2) g/dL Albumin 4.0 (3.5-5.0) g/dL Amylase 35 (30-110) U/L Lipase 38 (23-300) U/L Serum , Qual NEGATIVE (Negative) Urine Color (YELLOW) Urine Appearance (CLEAR) Urine pH (5-6) Ur Specific [place] (1.005-1.025) Urine Protein (Negative) Urine Ketones (NEGATIVE) Urine Blood (0-5) Tyshawn/ul Urine Nitrite (NEGATIVE) Urine Bilirubin (NEGATIVE) Urine Urobilinogen (0-1) mg/dL Ur Leukocyte Esterase (NEGATIVE) Urine WBC (Auto) (0-5) /HPF Urine RBC (Auto) (0-2) /HPF U Epithel Cells (Auto) (FEW) /HPF Urine Bacteria (Auto) (NEGATIVE) /HPF Urine Mucus (Auto) (NEGATIVE) /HPF Urine Culture Reflexed (NO) Urine Glucose (NEGATIVE) mg/dL 04/18/21 Range/Units 01:06 WBC (4.0-10.5) K/mm3 RBC (4.1-5.4) M/mm3 Hgb (12.0-16.0) gm/dl Hct (35-47) % MCV (78-100) fl MCH (26-32) pg MCHC (32-36) g/dl RDW (11.5-14.0) % Plt Count (150-450) K/mm3 MPV (7.5-11.0) fl Sodium (137-145) mmol/L Potassium (3.5-5.1) mmol/L Chloride (98-107) mmol/L Carbon Dioxide (22-30) mmol/L Anion Gap (5-15) MEQ/L BUN (7-17) mg/dL Creatinine (0.52-1.04) mg/dL Estimated GFR ML/MIN Glucose (74-106) mg/dL Calcium (8.4-10.2) mg/dL Total Bilirubin (0.2-1.3) mg/dL AST (14-36) U/L ALT (0-35) U/L Alkaline Phosphatase (38-126) U/L Serum Total Protein (6.3-8.2) g/dL Albumin (3.5-5.0) g/dL Amylase (30-110) U/L Lipase (23-300) U/L Serum , Qual (Negative) Urine Color NIELS (YELLOW) Urine Appearance SLIGHTLY CLOUDY (CLEAR) Urine pH 5.0 (5-6) Ur Specific [place] 1.026 (1.005-1.025) Urine Protein 30 (Negative) Urine Ketones TRACE (NEGATIVE) Urine Blood SMALL (0-5) Tyshawn/ul Urine Nitrite NEGATIVE (NEGATIVE) Urine Bilirubin NEGATIVE (NEGATIVE) Urine Urobilinogen 2 (0-1) mg/dL Ur Leukocyte Esterase MODERATE (NEGATIVE) Urine WBC (Auto) 51-100 (0-5) /HPF Urine RBC (Auto) 6-10 (0-2) /HPF U Epithel Cells (Auto) RARE (FEW) /HPF Urine Bacteria (Auto) FEW (NEGATIVE) /HPF Urine Mucus (Auto) MANY (NEGATIVE) /HPF Urine Culture Reflexed YES (NO) Urine Glucose NEGATIVE (NEGATIVE) mg/dL - Progress Progress: improved Progress Note: 04/18/21 03:43 30mg IV Toradol w improvement in pain 04/18/21 04:[address] Gerber 04/18/21 04:40 1L NS bolus 04/18/21 04:41 40meq po KCl Discussed with : Genna Will see patient in: hospital (observation) Counseled pt/family regarding: lab results, diagnosis, rad results - Departure Departure Disposition: Observation Clinical Impression: UTI (lower urinary tract infection) Condition: Stable Critical Care Time: No Referrals: GHISLAINE DSOUZA [Primary Care Provider] -
[2021-04-18 01:28] LABS: White Blood Count 27.9 K/mm3 (4.0-10.5)
[2021-04-18] MEDS ORDERED: ROCEPHIN 1 Gm-D5w 50 ml Bag** 1 G/50 ML IVPB IV STA (02:45)
[2021-04-18] MEDS ORDERED: ROCEPHIN 1 Gm-D5w 50 ml Bag** 1 G/50 ML IVPB IV ONE (02:47)
[2021-04-18] MEDS ORDERED: Sodium Chloride 0.9% 1000 ML 1,000 ML IV STA (04:24)
[2021-04-18] MEDS ORDERED: Sodium Chloride 0.9% 1000 ML 1,000 ML ONE (04:25)
[2021-04-18] MEDS ORDERED: Zofran 4 MG/2 ML VIAL IV PRN (04:35)
[2021-04-18 04:40] LABS: Barbiturate,Urine NEGATIVE (NEGATIVE); Benzodiazepine,Urine NEGATIVE (NEGATIVE); Cocaine,Urine NEGATIVE (NEGATIVE); Methadone,Urine NEGATIVE (NEGATIVE); Opiate,Urine NEGATIVE (NEGATIVE); PCP,Urine NEGATIVE (NEGATIVE); THC,Urine POSITIVE (NEGATIVE)
[2021-04-18] MEDS ORDERED: Klor Con 10 MEQ PO ONE ×2 (04:41→04:48)
[2021-04-18] MEDS: Sodium Chloride 0.9% W/ 20 mEq KCl/LITER 1,000 ML IV SCH ×2 (04:50→13:54)
[2021-04-18 05:41] LABS: BAND 13 % (0.0-2.0); Lymphocytes 4 % (24-44); Monocyte 1 % (0.0-12.0); Neutrophils 82 % (36.0-66.0); Platelet Estimate NORMAL (NORMAL); Total Cells Counted 100
[2021-04-18 06:41] LABS: Amphetamine,Urine POSITIVE (NEGATIVE)
--- NOTE | 2021-04-18 07:54 | XRAY ---
Indication: Pain, diarrhea, and difficulty urinating. Positive UTI. Multiple contiguous axial images obtained through the abdomen and pelvis without contrast. Comparison: None Lung bases are clear. Heart not enlarged. Radiopacity in the stomach lumen presumed ingested medication/bismuth. Noncontrasted bowel loops appear nonobstructed. Several jejunal bowel loops are minimally fluid distended with mild bowel wall thickening, possibly enteritis. Normal appendix. No free fluid/air. Gallbladder contracted without gallstones. A few nonobstructing punctate renal calculi bilaterally. Remaining liver, gallbladder, pancreas, spleen, adrenal glands, kidneys, ureters, bladder, uterus, and aorta are unremarkable for noncontrast exam. Osseous structures intact. No ventral or inguinal hernias. Impression: 1. Minimal fluid distended small bowel with bowel wall thickening, possible enteritis. 2. Nonobstructing bilateral renal micro-calculi. Comment: Preliminary interpretation was made by [facility]. No critical discrepancy.
[2021-04-18] MEDS ORDERED: ROCEPHIN 1 Gm-D5w 50 ml Bag** 1 G/50 ML IVPB IV SCH ×2 (10:00→22:00)
[2021-04-18] MEDS: ENOXAPARIN SODIUM SQ SCH (10:38)
[2021-04-18] MEDS: PROTONIX 40 MG IV IV SCH (10:38)
--- NOTE | 2021-04-18 13:03 | PCM.HP ---
History of Present Illness - Chief Complaint Chief Complaint: uti Medications & Allergies Home Medications: Home Medication List Escitalopram Oxalate 10 mg [Lexapro 10 MG] 20 mg PO DAILY 10/15/19 [History Confirmed 04/18/21] OXcarbazepine [Oxcarbazepine] 900 mg PO BID 10/15/19 [History Confirmed 04/18/21] Levofloxacin [Levaquin] 500 mg PO DAILY #5 tablet 04/19/21 [Rx] Allergies/Adverse Reactions: Allergies Allergy/AdvReac Type Severity Reaction Status Date / Time BEES Allergy Intermediate Swelling Uncoded 04/18/21 00:43 - Past Medical History Past Medical History: Yes Neurological History: Seizures, Other ENT History: No Pertinent History Cardiac History: No Pertinent History Respiratory History: Asthma Endocrine Medical History: No Pertinent History Musculoskelatal History: No Pertinent History GI Medical History: No Pertinent History History: Other Pyscho-Social History: Anxiety, Depression, Other Reproductive Disorders: Other Comment: brain tumor remove in September 2013. UTI's - Female History Hx Last Menstrual Period: 04-26-21 Are you now?: No - Past Surgical History Past Surgical History: Yes Neuro Surgical History: Neurological Surgery Cardiac History: No Pertinent History Respiratory Surgery: No Pertinent History GI Surgical History: No Pertinent History Genitourinary Surgical Hx: No Pertinent History Musculskeletal Surgical Hx: No Pertinent History Female Surgical History: No Pertinent History Other Surgical History: D&C - Social History Smoking Status: Current every day smoker How long have you smoked: 12 yrs Exposure to second hand smoke: Yes Alcohol: Occasionally Drug Use: marijuana Significant Family History: no pertinent family hx - Physical Exam Vital Signs: Vital Signs - 24 hr Temp Pulse Resp BP Pulse Ox 04/18/21 12:00 98.1 F 70 16 106/56 100 04/18/21 07:23 98.4 F 73 18 113/53 100 04/18/21 06:26 98.7 F 83 18 112/61 100 04/18/21 05:45 59 L 100/45 98 04/18/21 04:08 79 102/54 100 04/18/21 03:50 78 103/53 100 04/18/21 02:03 87 102/57 100 04/18/21 01:35 93 H 100/67 100 Results - Labs Lab/Micro Results: Lab Results-Last 24 Hours 04/18/21 04/18/21 04/18/21 Range/Units 01:06 01:06 01:06 WBC 27.9 H* (4.0-10.5) K/mm3 RBC 3.91 L (4.1-5.4) M/mm3 Hgb 11.7 L (12.0-16.0) gm/dl Hct 36.8 (35-47) % MCV 94.1 (78-100) fl MCH 29.9 (26-32) pg MCHC 31.8 L (32-36) g/dl RDW 14.0 (11.5-14.0) % Plt Count 360 (150-450) K/mm3 MPV 9.5 (7.5-11.0) fl Segmented Neutrophils 82 H (36.0-66.0) % Band Neutrophils 13 H (0.0-2.0) % Lymphocytes (Manual) 4 L (24-44) % Monocytes (Manual) 1 (0.0-12.0) % Platelet Estimate NORMAL (NORMAL) RBC Morphology NORMAL Sodium 137 (137-145) mmol/L Potassium 3.0 L* (3.5-5.1) mmol/L Chloride 101 (98-107) mmol/L Carbon Dioxide 24 (22-30) mmol/L Anion Gap 14.8 (5-15) MEQ/L BUN 17 (7-17) mg/dL Creatinine 0.57 (0.52-1.04) mg/dL Estimated GFR > 60.0 ML/MIN Glucose 115 H (74-106) mg/dL Calcium 9.0 (8.4-10.2) mg/dL Total Bilirubin 0.30 (0.2-1.3) mg/dL AST 22 (14-36) U/L ALT 12 (0-35) U/L Alkaline Phosphatase 86 (38-126) U/L Serum Total Protein 7.1 (6.3-8.2) g/dL Albumin 4.0 (3.5-5.0) g/dL Amylase 35 (30-110) U/L Lipase 38 (23-300) U/L Serum , Qual (Negative) Urine Color NIELS (YELLOW) Urine Appearance SLIGHTLY CLOUDY (CLEAR) Urine pH 5.0 (5-6) Ur Specific [place] 1.026 (1.005-1.025) Urine Protein 30 (Negative) Urine Ketones TRACE (NEGATIVE) Urine Blood SMALL (0-5) Tyshawn/ul Urine Nitrite NEGATIVE (NEGATIVE) Urine Bilirubin NEGATIVE (NEGATIVE) Urine Urobilinogen 2 (0-1) mg/dL Ur Leukocyte Esterase MODERATE (NEGATIVE) Urine WBC (Auto) 51-100 (0-5) /HPF Urine RBC (Auto) 6-10 (0-2) /HPF U Epithel Cells (Auto) RARE (FEW) /HPF Urine Bacteria (Auto) FEW (NEGATIVE) /HPF Urine Mucus (Auto) MANY (NEGATIVE) /HPF Urine Culture Reflexed YES (NO) Urine Glucose NEGATIVE (NEGATIVE) mg/dL Urine Opiates Level (NEGATIVE) Ur Methadone (NEGATIVE) Urine Barbiturates (NEGATIVE) Ur Phencyclidine (PCP) (NEGATIVE) Urine Amphetamine (NEGATIVE) U Benzodiazepine Level (NEGATIVE) Urine Cocaine (NEGATIVE) Urine Marijuana (THC) (NEGATIVE) SARS-CoV-2 (PCR) (NEGATIVE) 04/18/21 04/18/21 04/18/21 Range/Units 01:06 03:50 04:54 WBC (4.0-10.5) K/mm3 RBC (4.1-5.4) M/mm3 Hgb (12.0-16.0) gm/dl Hct (35-47) % MCV (78-100) fl MCH (26-32) pg MCHC (32-36) g/dl RDW (11.5-14.0) % Plt Count (150-450) K/mm3 MPV (7.5-11.0) fl Segmented Neutrophils (36.0-66.0) % Band Neutrophils (0.0-2.0) % Lymphocytes (Manual) (24-44) % Monocytes (Manual) (0.0-12.0) % Platelet Estimate (NORMAL) RBC Morphology Sodium (137-145) mmol/L Potassium (3.5-5.1) mmol/L Chloride (98-107) mmol/L Carbon Dioxide (22-30) mmol/L Anion Gap (5-15) MEQ/L BUN (7-17) mg/dL Creatinine (0.52-1.04) mg/dL Estimated GFR ML/MIN Glucose (74-106) mg/dL Calcium (8.4-10.2) mg/dL Total Bilirubin (0.2-1.3) mg/dL AST (14-36) U/L ALT (0-35) U/L Alkaline Phosphatase (38-126) U/L Serum Total Protein (6.3-8.2) g/dL Albumin (3.5-5.0) g/dL Amylase (30-110) U/L Lipase (23-300) U/L Serum , Qual NEGATIVE (Negative) Urine Color (YELLOW) Urine Appearance (CLEAR) Urine pH (5-6) Ur Specific Green[place] (1.005-1.025) Urine Protein (Negative) Urine Ketones (NEGATIVE) Urine Blood (0-5) Tyshawn/ul Urine Nitrite (NEGATIVE) Urine Bilirubin (NEGATIVE) Urine Urobilinogen (0-1) mg/dL Ur Leukocyte Esterase (NEGATIVE) Urine WBC (Auto) (0-5) /HPF Urine RBC (Auto) (0-2) /HPF U Epithel Cells (Auto) (FEW) /HPF Urine Bacteria (Auto) (NEGATIVE) /HPF Urine Mucus (Auto) (NEGATIVE) /HPF Urine Culture Reflexed (NO) Urine Glucose (NEGATIVE) mg/dL Urine Opiates Level NEGATIVE (NEGATIVE) Ur Methadone NEGATIVE (NEGATIVE) Urine Barbiturates NEGATIVE (NEGATIVE) Ur Phencyclidine (PCP) NEGATIVE (NEGATIVE) Urine Amphetamine POSITIVE (NEGATIVE) U Benzodiazepine Level NEGATIVE (NEGATIVE) Urine Cocaine NEGATIVE (NEGATIVE) Urine Marijuana (THC) POSITIVE (NEGATIVE) SARS-CoV-2 (PCR) NEGATIVE (NEGATIVE) - Radiology Impressions Radiology Exams & Impressions: Radiology Procedures Category Date Time Status ABDOMEN AND PELVIS W/0 CONTRAS [CT] Stat Exams 04/18/21 01:30 Completed
[2021-04-18] MEDS: TORAdol 30 mg Injection IV PRN ×2 (17:56→23:56)
[2021-04-18] MEDS ORDERED: PERCOCET TABLET 5/325MG PO PRN (19:48)
[2021-04-18] MEDS ORDERED: Levofloxacin 500MG/100ML D5W 500 MG/100 ML BAG IV ONE (19:54)
[2021-04-18] MEDS: Trileptal 300 MG Tablet PO SCH (21:04)
[2021-04-18 22:37] LABS: Absolute Neutrophil Ct (ANC) 7.41 (1.4-6.9); BASOPHIL % 0.2 % (0.0-0.4); Basophil (Absolute #) 0.02 (0-0.4); Eosinophil % 2.3 % (0.00-5.0); Eosinophil (Absolute #) 0.24 (0-0.5); Hematocrit 30.2 % (35-47); Hemoglobin 9.4 gm/dl (12.0-16.0); Lymphocyte (Absolute #) 2.07 (1.0-4.6); Lymphocytes % 19.4 % (24.0-44.0); Mean Corpuscular Hemoglobin 29.6 pg (26-32); Mean Corpuscular Hgb Concent. 31.1 g/dl (32-36); Mean Platelet Volume 9.4 fl (7.5-11.0); Monocyte (Absolute #) 0.91 (0.0-1.3); Monocytes % 8.5 % (0.0-12.0); Neutrophil % 69.6 % (36.0-66.0); Platelet Count 285 K/mm3 (150-450); Red Blood Count 3.18 M/mm3 (4.1-5.4); White Blood Count 10.7 K/mm3 (4.0-10.5)
[2021-04-18 22:55] LABS: ALBUMIN 2.9 g/dL (3.5-5.0); ALKALINE PHOSPHATASE 72 U/L (38-126); BILIRUBIN,TOTAL < 0.10 mg/dL (0.2-1.3); BLOOD UREA NITROGEN 17 mg/dL (7-17); CHLORIDE 110 mmol/L (98-107); Calcium 8.1 mg/dL (8.4-10.2); Carbon Dioxide 20 mmol/L (22-30); Creatinine 1 0.52 mg/dL (0.52-1.04); EST GLOMERULAR FILTRATION RATE > 60.0 ML/MIN; Glucose 94 mg/dL (74-106); Potassium 3.8 mmol/L (3.5-5.1); SGOT/AST 11 U/L (14-36); SGPT/ALT 8 U/L (0-35); SODIUM 137 mmol/L (137-145); Total Protein 5.6 g/dL (6.3-8.2)
[2021-04-19] MEDS: Sodium Chloride 0.9% W/ 20 mEq KCl/LITER 1,000 ML IV SCH ×2 (01:57→02:42)
[2021-04-19 04:42] VITALS: O2SAT 99
[2021-04-19 06:26] LABS: Absolute Neutrophil Ct (ANC) 4.54 (1.4-6.9); BASOPHIL % 0.1 % (0.0-0.4); Basophil (Absolute #) 0.01 (0-0.4); Eosinophil % 2.8 % (0.00-5.0); Eosinophil (Absolute #) 0.21 (0-0.5); Hematocrit 29.9 % (35-47); Hemoglobin 9.3 gm/dl (12.0-16.0); Lymphocytes % 26.9 % (24.0-44.0); Mean Cell Volume 95.2 fl (78-100); Mean Corpuscular Hemoglobin 29.6 pg (26-32); Mean Corpuscular Hgb Concent. 31.1 g/dl (32-36); Mean Platelet Volume 10.4 fl (7.5-11.0); Monocyte (Absolute #) 0.67 (0.0-1.3); Neutrophil % 61.2 % (36.0-66.0); Platelet Count 313 K/mm3 (150-450); Red Blood Count 3.14 M/mm3 (4.1-5.4); Red Cell Distribution Width 14.2 % (11.5-14.0); White Blood Count 7.4 K/mm3 (4.0-10.5)
[2021-04-19 06:46] LABS: ALKALINE PHOSPHATASE 82 U/L (38-126); ANION GAP 10.6 MEQ/L (5-15); BILIRUBIN,TOTAL < 0.10 mg/dL (0.2-1.3); BLOOD UREA NITROGEN 15 mg/dL (7-17); CHLORIDE 110 mmol/L (98-107); Calcium 8.3 mg/dL (8.4-10.2); Carbon Dioxide 22 mmol/L (22-30); Creatinine 1 0.53 mg/dL (0.52-1.04); EST GLOMERULAR FILTRATION RATE > 60.0 ML/MIN; Glucose 87 mg/dL (74-106); Potassium 3.7 mmol/L (3.5-5.1); SGOT/AST 15 U/L (14-36); SGPT/ALT 10 U/L (0-35); SODIUM 139 mmol/L (137-145); Total Protein 5.6 g/dL (6.3-8.2)
[2021-04-19] MEDS ORDERED: Lexapro 10 MG PO SCH (10:00)
[2021-04-19] MEDS: Trileptal 300 MG Tablet PO SCH (10:35)
[2021-04-19] MEDS: PROTONIX 40 MG IV IV SCH (10:35)
[2021-04-19] MEDS: ENOXAPARIN SODIUM SQ SCH (10:35)
--- NOTE | 2021-04-19 11:56 | PCM.SSS ---
History of Present Illness - Chief Complaint Chief Complaint: uti History of Present Illness: is a 30 [address] old female of Dr Kam. She presented to ER with abd pain and hematuria. She has a Hx recurrent UTI. WBC >20,000 in ER and urine and blood cultures were obtained.She was started on IV Rocephin and zithromax and admitted to Med surg obs. - Review of Systems Constitutional: Fatigue Eyes: No Symptoms Ears, Nose, & Throat: No Symptoms Respiratory: No Symptoms, Other (occasoional cough to clear throat) Cardiac: No Symptoms Abdominal/Gastrointestinal: Abdominal Pain (RLQ sand R flank), Nausea Genitourinary Symptoms: Dysuria, Other (no vaginal discharge) Musculoskeletal: Myalgias Skin: No Symptoms Neurological: No Symptoms, Seizure (controlled on current med-Hx head trauma) Psychological: Depression (is taking Lexapro), Other (Meth positive in ER screening urine test) Endocrine: No Symptoms Hematologic/Lymphatic: No Symptoms Medications & Allergies Home Medications: Home Medication List Escitalopram Oxalate 10 mg [Lexapro 10 MG] 20 mg PO DAILY 10/15/19 [History Confirmed 04/18/21] OXcarbazepine [Oxcarbazepine] 900 mg PO BID 10/15/19 [History Confirmed 04/18/21] Levofloxacin [Levaquin] 500 mg PO DAILY #5 tablet 04/19/21 [Rx] Allergies/Adverse Reactions: Allergies Allergy/AdvReac Type Severity Reaction Status Date / Time BEES Allergy Intermediate Swelling Uncoded 04/18/21 00:43 - Past Medical History Past Medical History: Yes Neurological History: Seizures, Other ENT History: No Pertinent History Cardiac History: No Pertinent History Respiratory History: Asthma Endocrine Medical History: No Pertinent History Musculoskelatal History: No Pertinent History GI Medical History: No Pertinent History History: Other Pyscho-Social History: Anxiety, Depression, Other Reproductive Disorders: Other Comment: brain tumor remove in September 2013. UTI's - Female History Hx Last Menstrual Period: 04-26-21 Are you now?: No - Past Surgical History Past Surgical History: Yes Neuro Surgical History: Neurological Surgery Cardiac History: No Pertinent History Respiratory Surgery: No Pertinent History GI Surgical History: No Pertinent History Genitourinary Surgical Hx: No Pertinent History Musculskeletal Surgical Hx: No Pertinent History Female Surgical History: No Pertinent History Other Surgical History: D&C - Social History Smoking Status: Current every day smoker How long have you smoked: 12 yrs Exposure to second hand smoke: Yes Alcohol: Occasionally Drug Use: marijuana Significant Family History: no pertinent family hx - Physical Exam Vital Signs: Vital Signs - 24 hr Temp Pulse Resp BP Pulse Ox 04/19/21 07:50 98.2 F 62 16 104/51 99 04/19/21 04:00 98.2 F 62 16 104/51 99 04/18/21 23:44 98.1 F 66 17 101/65 100 04/18/21 19:53 98.1 F 70 16 109/53 100 04/18/21 16:00 98.0 F 80 20 108/56 100 04/18/21 12:00 98.1 F 70 16 106/56 100 General Appearance: no apparent distress Neurologic Exam: alert, oriented x 3, cooperative, normal mood/affect Eye Exam: eyes nml inspection Ears, Nose, Throat Exam: normal ENT inspection Neck Exam: normal inspection Respiratory Exam: diminished breath sounds (improved with deep breath and cough) Cardiovascular Exam: regular rate/rhythm Gastrointestinal/Abdomen Exam: soft, tenderness (RLQ and right flank-improved from yesterday) Pelvic Exam: not done Rectal Exam: not done Back Exam: CVA tenderness (right CVA tendernessresolved overnight) Extremity Exam: normal inspection Skin Exam: normal color Results - Labs Lab/Micro Results: Lab Results-Last 24 Hours 04/18/21 04/18/21 04/18/21 Range/Units 22:00 22:34 22:34 WBC 10.7 H (4.0-10.5) K/mm3 RBC 3.18 L (4.1-5.4) M/mm3 Hgb 9.4 L (12.0-16.0) gm/dl Hct 30.2 L (35-47) % MCV 95.0 (78-100) fl MCH 29.6 (26-32) pg MCHC 31.1 L (32-36) g/dl RDW 14.0 (11.5-14.0) % Plt Count 285 (150-450) K/mm3 MPV 9.4 (7.5-11.0) fl Gran % 69.6 H (36.0-66.0) % Eos # (Auto) 0.24 (0-0.5) Absolute Lymphs (auto) 2.07 (1.0-4.6) Absolute Monos (auto) 0.91 (0.0-1.3) Lymphocytes % 19.4 L (24.0-44.0) % Monocytes % 8.5 (0.0-12.0) % Eosinophils % 2.3 (0.00-5.0) % Basophils % 0.2 (0.0-0.4) % Absolute Granulocytes 7.41 H (1.4-6.9) Basophils # 0.02 (0-0.4) Sodium 137 (137-145) mmol/L Potassium 3.8 D (3.5-5.1) mmol/L Chloride 110 H (98-107) mmol/L Carbon Dioxide 20 L (22-30) mmol/L Anion Gap 11.0 (5-15) MEQ/L BUN 17 (7-17) mg/dL Creatinine 0.52 (0.52-1.04) mg/dL Estimated GFR > 60.0 ML/MIN Glucose 94 (74-106) mg/dL Calcium 8.1 L (8.4-10.2) mg/dL Total Bilirubin < 0.10 L (0.2-1.3) mg/dL AST 11 L (14-36) U/L ALT 8 (0-35) U/L Alkaline Phosphatase 72 (38-126) U/L Serum Total Protein 5.6 L (6.3-8.2) g/dL Albumin 2.9 L (3.5-5.0) g/dL Beta HCG, Quant < 2.39 mIU/ml 04/19/21 04/19/21 Range/Units 05:30 05:30 WBC 7.4 (4.0-10.5) K/mm3 RBC 3.14 L (4.1-5.4) M/mm3 Hgb 9.3 L (12.0-16.0) gm/dl Hct 29.9 L (35-47) % MCV 95.2 (78-100) fl MCH 29.6 (26-32) pg MCHC 31.1 L (32-36) g/dl RDW 14.2 H (11.5-14.0) % Plt Count 313 (150-450) K/mm3 MPV 10.4 (7.5-11.0) fl Gran % 61.2 (36.0-66.0) % Eos # (Auto) 0.21 (0-0.5) Absolute Lymphs (auto) 2.00 (1.0-4.6) Absolute Monos (auto) 0.67 (0.0-1.3) Lymphocytes % 26.9 (24.0-44.0) % Monocytes % 9.0 (0.0-12.0) % Eosinophils % 2.8 (0.00-5.0) % Basophils % 0.1 (0.0-0.4) % Absolute Granulocytes 4.54 (1.4-6.9) Basophils # 0.01 (0-0.4) Sodium 139 (137-145) mmol/L Potassium 3.7 (3.5-5.1) mmol/L Chloride 110 H (98-107) mmol/L Carbon Dioxide 22 (22-30) mmol/L Anion Gap 10.6 (5-15) MEQ/L BUN 15 (7-17) mg/dL Creatinine 0.53 (0.52-1.04) mg/dL Estimated GFR > 60.0 ML/MIN Glucose 87 (74-106) mg/dL Calcium 8.3 L (8.4-10.2) mg/dL Total Bilirubin < 0.10 L (0.2-1.3) mg/dL AST 15 (14-36) U/L ALT 10 (0-35) U/L Alkaline Phosphatase 82 (38-126) U/L Serum Total Protein 5.6 L (6.3-8.2) g/dL Albumin 3.0 L (3.5-5.0) g/dL Beta HCG, Quant mIU/ml Microbiology 04/18/21 01:06 Urine Culture - Final Clean Catch Midstream MIXED VOLODYMYR; 3 OR MORE TYPES. NO PREDOMINANT ORGANISM. NO FURTHER WORKUP. PLEASE RESUBMIT IF CLINICALLY INDICATED. 04/18/21 03:00 Blood Culture - Preliminary Blood NO GROWTH TO DATE 04/18/21 01:01 Blood Culture - Preliminary Blood NO GROWTH TO DATE - Radiology Impressions Radiology Exams & Impressions: Radiology Procedures Category Date Time Status ABDOMEN AND PELVIS W/0 CONTRAS [CT] Stat Exams 04/18/21 01:30 Completed Assessment/Plan (1) Pyelonephritis Current Visit: Yes Status: Acute Assessment & Plan: improved on Rocephin and Zithromax -culture grew mixed volodymyr WBC down to normal today Code(s): N12 - TUBULO-INTERSTITIAL NEPHRITIS, NOT SPCF ACUTE OR CHRONIC (2) Leukocytosis Current Visit: Yes Status: Resolved Qualifiers: Leukocytosis type: bandemia Qualified Code(s): D72.825 - Bandemia Assessment & Plan: WBC on admission was 29,000 and today is 7,100 after IV fluids and IV Zocephin and Zithromax Code(s): D72.829 - ELEVATED WHITE BLOOD CELL COUNT, UNSPECIFIED Hospital Summary - Hospital Course Hospital Course: Patient is a 30yr old female patient of Dr Crum with Hx recurrent UTIs and seizures,depression and drug abuse. She was admitted from ER with Dg UTI . CT showed renal stones,nonoccluding and WBC was 29,000 in ER. She was admitted to OBS on Med surg treated with IV fluids and IV Zithromax and Rocephin. Right sided abd pain improved and WBC normalized . She will be discharged home [facility] to follow up with Dr Crum. She drinks alot of moutain dew and knows she must avoid pop and drink water-can flavor with fresh citrus juice. - Vitals & Intake/Output Vital Signs: Vital Signs Temperature 98.2 F 04/19/21 07:50 Pulse Rate 62 04/19/21 07:50 Respiratory Rate 16 04/19/21 07:50 Blood Pressure 104/51 04/19/21 07:50 O2 Sat by Pulse Oximetry 99 04/19/21 07:50 Intake & Output: Intake & Output 04/16/21 04/17/21 04/18/21 04/19/21 11:59 11:59 11:59 11:59 Intake Total 240 3463 Output Total 1350 Balance 240 2113 Weight 74.5 kg - Lab Result Diagrams: 04/19/21 05:30 04/19/21 05:30 Lab Results-Last 24 Hrs: Lab Results-Last 24 Hours 04/18/21 04/18/21 04/18/21 Range/Units 22:00 22:34 22:34 WBC 10.7 H (4.0-10.5) K/mm3 RBC 3.18 L (4.1-5.4) M/mm3 Hgb 9.4 L (12.0-16.0) gm/dl Hct 30.2 L (35-47) % MCV 95.0 (78-100) fl MCH 29.6 (26-32) pg MCHC 31.1 L (32-36) g/dl RDW 14.0 (11.5-14.0) % Plt Count 285 (150-450) K/mm3 MPV 9.4 (7.5-11.0) fl Gran % 69.6 H (36.0-66.0) % Eos # (Auto) 0.24 (0-0.5) Absolute Lymphs (auto) 2.07 (1.0-4.6) Absolute Monos (auto) 0.91 (0.0-1.3) Lymphocytes % 19.4 L (24.0-44.0) % Monocytes % 8.5 (0.0-12.0) % Eosinophils % 2.3 (0.00-5.0) % Basophils % 0.2 (0.0-0.4) % Absolute Granulocytes 7.41 H (1.4-6.9) Basophils # 0.02 (0-0.4) Sodium 137 (137-145) mmol/L Potassium 3.8 D (3.5-5.1) mmol/L Chloride 110 H (98-107) mmol/L Carbon Dioxide 20 L (22-30) mmol/L Anion Gap 11.0 (5-15) MEQ/L BUN 17 (7-17) mg/dL Creatinine 0.52 (0.52-1.04) mg/dL Estimated GFR > 60.0 ML/MIN Glucose 94 (74-106) mg/dL Calcium 8.1 L (8.4-10.2) mg/dL Total Bilirubin < 0.10 L (0.2-1.3) mg/dL AST 11 L (14-36) U/L ALT 8 (0-35) U/L Alkaline Phosphatase 72 (38-126) U/L Serum Total Protein 5.6 L (6.3-8.2) g/dL Albumin 2.9 L (3.5-5.0) g/dL Beta HCG, Quant < 2.39 mIU/ml 04/19/21 04/19/21 Range/Units 05:30 05:30 WBC 7.4 (4.0-10.5) K/mm3 RBC 3.14 L (4.1-5.4) M/mm3 Hgb 9.3 L (12.0-16.0) gm/dl Hct 29.9 L (35-47) % MCV 95.2 (78-100) fl MCH 29.6 (26-32) pg MCHC 31.1 L (32-36) g/dl RDW 14.2 H (11.5-14.0) % Plt Count 313 (150-450) K/mm3 MPV 10.4 (7.5-11.0) fl Gran % 61.2 (36.0-66.0) % Eos # (Auto) 0.21 (0-0.5) Absolute Lymphs (auto) 2.00 (1.0-4.6) Absolute Monos (auto) 0.67 (0.0-1.3) Lymphocytes % 26.9 (24.0-44.0) % Monocytes % 9.0 (0.0-12.0) % Eosinophils % 2.8 (0.00-5.0) % Basophils % 0.1 (0.0-0.4) % Absolute Granulocytes 4.54 (1.4-6.9) Basophils # 0.01 (0-0.4) Sodium 139 (137-145) mmol/L Potassium 3.7 (3.5-5.1) mmol/L Chloride 110 H (98-107) mmol/L Carbon Dioxide 22 (22-30) mmol/L Anion Gap 10.6 (5-15) MEQ/L BUN 15 (7-17) mg/dL Creatinine 0.53 (0.52-1.04) mg/dL Estimated GFR > 60.0 ML/MIN Glucose 87 (74-106) mg/dL Calcium 8.3 L (8.4-10.2) mg/dL Total Bilirubin < 0.10 L (0.2-1.3) mg/dL AST 15 (14-36) U/L ALT 10 (0-35) U/L Alkaline Phosphatase 82 (38-126) U/L Serum Total Protein 5.6 L (6.3-8.2) g/dL Albumin 3.0 L (3.5-5.0) g/dL Beta HCG, Quant mIU/ml Micro Results-Entire Visit: Microbiology 04/18/21 01:06 Urine Culture - Final Clean Catch Midstream MIXED VOLODYMYR; 3 OR MORE TYPES. NO PREDOMINANT ORGANISM. NO FURTHER WORKUP. PLEASE RESUBMIT IF CLINICALLY INDICATED. 04/18/21 03:00 Blood Culture - Preliminary Blood NO GROWTH TO DATE 04/18/21 01:01 Blood Culture - Preliminary Blood NO GROWTH TO DATE - Radiology Exams Ordered Rad Exams-Entire Visit: Radiology Procedures Category Date Time Status ABDOMEN AND PELVIS W/0 CONTRAS [CT] Stat Exams 04/18/21 01:30 Completed - Discharge Disposition: Home, Self-Care Condition: Stable Prescriptions: New Levofloxacin [Levaquin] 500 mg PO DAILY #5 tablet Continue OXcarbazepine [Oxcarbazepine] 900 mg PO BID Escitalopram Oxalate 10 mg [Lexapro 10 MG] 20 mg PO DAILY Instructions: Urinary Tract Infection, Adult (DC), Levofloxacin (Systemic) Follow up with: GHISLAINE CRUM [Primary Care Provider] - Forms: Discharge Instructions
[2021-04-19 12:31] VITALS: BP 114/58; PULSE 70
[2021-04-19] MEDS ORDERED: Levofloxacin 500MG/100ML D5W 500 MG/100 ML BAG IV ONE (19:52)
== END 2021-04-19 13:17 | disposition home or self-care (01) ==
LOC: ED 00:34 → MED SURG 06:18
PROVIDERS: ADMIT Family Medicine; ATTEND Family Medicine
DX: N12 Tubulo-interstitial nephritis, not specified as acute or chronic (principal); D72.829 Elevated white blood cell count, unspecified; Z20.828 Contact with and (suspected) exposure to other viral communicable diseases; R56.9 Unspecified convulsions; Z79.899 Other long term (current) drug therapy
CPT/HCPCS: 36415; 74176; 80053; 80307; 81001; 81025; 82150; 83690; 84702; 85025; 87040; 87086; 96360; 96374; 99285; G0378; U0003; J0696; J1650; J1885; J1956; A9270-GY

== ENCOUNTER 2022-03-24 22:15 | Emergency (ER) | payer OTHER ==
[2022-03-24 22:22] VITALS: O2SAT 99
[2022-03-24] MEDS ORDERED: TORAdol 30 mg Injection IM ONE (22:39)
[2022-03-24] MEDS ORDERED: TORAdol 30 mg Injection ONE (22:40)
[2022-03-24] MEDS ORDERED: Augmentin 875-125 Tablet PO ONE (23:12)
[2022-03-24] MEDS ORDERED: Augmentin 875-125 Tablet ONE (23:14)
[2022-03-24 23:17] VITALS: BP 105/67; PULSE 84
--- NOTE | 2022-03-24 23:18 | ERPHSYRPT ---
- History of Present Illness Time Seen by Provider: 03/24/22 22:40 Source: patient Exam Limitations: no limitations Patient Subjective Stated Complaint: tooth ache Triage Nursing Assessment: pt c/o tooth pain, left lower side. Pain began last evening around 8pm. Pt is very drowsy. Physician History: Patient 31-year-old female presents to our ED with a 1 day history of dental pain. Dental pain is lower left jaw. Patient has poor dentition. Pain described as an ache that is localized. No radiation. Pain worse with mastication. Pain improved with rest. No trauma. No headache. No nausea or vomiting. No diaphoresis. Patient denies chest pain. Symptoms are mild to moderate in intensity. Palpation and mastication reproduce symptoms. Patient voices no other complaints or concerns at this time. Portions of this note were created with voice recognition technology. There may be grammatical, spelling, punctuation or sound alike errors Timing/Duration: today Severity: moderate Modifying Factors: Improves With: nothing (Patient not taking anything for pain.) Associated Symptoms: denies symptoms Allergies/Adverse Reactions: BEES Allergy (Intermediate, Uncoded 03/24/22 22:26) Swelling Home Medications: Escitalopram Oxalate [Lexapro] 20 mg PO DAILY 10/15/19 [History] OXcarbazepine [Oxcarbazepine] 900 mg PO BID 10/15/19 [History] Hx Tetanus, Diphtheria Vaccination/Date Given: Yes Hx Influenza Vaccination/Date Given: No Hx Pneumococcal Vaccination/Date Given: No Immunizations Up to Date: Yes Travel Risk - International Travel Have you traveled outside of the country in past 3 weeks: No - Coronavirus Screening Are you exhibiting any of the following symptoms?: No Close contact with a COVID-19 positive Pt in past 14-21 Days: No - Vaccine Status Have you recieved a Covid-19 vaccination: Yes Teletype Operator: Moderna - Vaccination Dates Date of 2cond Vaccination (if applicable): . - Review of Systems Constitutional: No Symptoms, No Fever, No Chills Eyes: No Symptoms Ears, Nose, & Throat: No Symptoms Respiratory: No Symptoms, No Cough, No Dyspnea Cardiac: No Symptoms, No Chest Pain, No Edema, No Syncope Abdominal/Gastrointestinal: No Symptoms, No Abdominal Pain, No Nausea, No Vomiting, No Diarrhea Genitourinary Symptoms: No Symptoms, No Dysuria Musculoskeletal: No Symptoms, No Back Pain, No Neck Pain Skin: No Symptoms, No Rash Neurological: No Symptoms, No Dizziness, No Focal Weakness, No Sensory Changes Psychological: No Symptoms Endocrine: No Symptoms Hematologic/Lymphatic: No Symptoms Immunological/Allergic: No Symptoms All Other Systems: Reviewed and Negative - Past Medical History Pertinent Past Medical History: Yes Neurological History: Seizures, Other ENT History: Glaucoma Cardiac History: No Pertinent History Respiratory History: Asthma Endocrine Medical History: No Pertinent History Musculoskeletal History: No Pertinent History GI Medical History: No Pertinent History History: Other Psycho-Social History: Anxiety, Depression, Other Female Reproductive Disorders: Other Other Medical History: brain tumor remove in September 2013. UTI's - Past Surgical History Past Surgical History: Yes Neuro Surgical History: Neurological Surgery Cardiac: No Pertinent History Respiratory: No Pertinent History Gastrointestinal: No Pertinent History Genitourinary: No Pertinent History Musculoskeletal: No Pertinent History Female Surgical History: Dilation & Curettage Other Surgical History: D&C - Social History Smoking Status: Current every day smoker How long have you smoked: 20 yrs Exposure to second hand smoke: Yes Drug Use: marijuana Patient Lives Alone: No Significant Family History: no pertinent family hx - Female History Hx Last Menstrual Period: last week Hx Now: No - Nursing Vital Signs Nursing Vital Signs: Initial Vital Signs Temperature 97.4 F 03/24/22 22:20 Pulse Rate 90 03/24/22 22:20 Respiratory Rate 16 03/24/22 22:20 Blood Pressure 103/59 03/24/22 22:20 O2 Sat by Pulse Oximetry 99 03/24/22 22:20 Pain Scale Pain Intensity 8 - Physical Exam General Appearance: no apparent distress, alert Eye Exam: PERRL/EOMI, eyes nml inspection Ears, Nose, Throat Exam: normal ENT inspection, TMs normal, pharynx normal, moist mucous membranes, other (Carious dentition throughout. There appears to be dental abscess between tooth 18 and 19. No intraoral lesions. No sublingual masses or cellulitis. No Zac's angina. Uvula midline. No peritonsillar abscess. No respiratory compromise. No cellulitis) Neck Exam: normal inspection, non-tender, supple, full range of motion Respiratory Exam: normal breath sounds, lungs clear, airway intact, No chest tenderness, No respiratory distress Cardiovascular Exam: regular rate/rhythm, normal heart sounds, normal peripheral pulses Gastrointestinal/Abdomen Exam: soft, normal bowel sounds, No tenderness, No mass Back Exam: normal inspection, normal range of motion, No CVA tenderness, No vertebral tenderness Extremity Exam: normal inspection, normal range of motion, pelvis stable Neurologic Exam: alert, oriented x 3, cooperative, normal mood/affect, sensation nml, No motor deficits Skin Exam: normal color, warm, dry, No rash Lymphatic Exam: No adenopathy SpO2 Interpretation: normal SpO2: 99 O2 Delivery: Room Air - Course Nursing assessment & vital signs reviewed: Yes Ordered Tests: Medication Summary Discontinued Medications Generic Name Dose Route Start Last Admin Trade Name Horacio PRN Reason Stop Dose Admin Ketorolac Tromethamine 30 mg 03/24/22 22:39 03/24/22 22:43 Ketorolac Tromethamine 30 Mg/Ml Inj IM 03/24/22 22:40 30 mg STAT ONE Administration Ketorolac Tromethamine Confirm 03/24/22 22:40 Ketorolac Tromethamine 30 Mg/Ml Inj Administered 03/24/22 22:41 Dose 30 mg .ROUTE .[facility] ONE - Progress Progress: improved Progress Note: Patient received Toradol for pain control. Pain improved. Patient received a dose of Augmentin in our ED. A prescription for the same was forwarded to patient's pharmacy. Patient also received a prescription for Toradol for pain control. Patient understand that she will require to follow-up with a dentist. Patient states she will contact her dentist for follow-up appointment. She voices no other complaints or concerns at this time. Will discharge home. Portions of this note were created with voice recognition technology. There may be grammatical, spelling, punctuation or sound alike errors 03/24/22 23:19 Counseled pt/family regarding: diagnosis, need for follow-up - Departure Departure Disposition: Home Clinical Impression: Dental abscess, Pain, dental, Carious teeth Condition: Stable Critical Care Time: No Referrals: GHISLAINE DSOUZA [Primary Care Provider] - Follow up/PCP as directed Prescriptions: Amox Tr/Potass Clav. 875 mg [Augmentin 875-125 Tablet] 875 mg PO BID 7 Days #14 tablet
== END 2022-03-24 23:23 | disposition home or self-care (01) ==
LOC: ED 22:15
DX: K04.7 Periapical abscess without sinus (principal); K02.9 Dental caries, unspecified; K08.89 Other specified disorders of teeth and supporting structures; Z72.0 Tobacco use; Z79.899 Other long term (current) drug therapy
CPT/HCPCS: 96372; 99283; J1885; A9270-GY

== ENCOUNTER 2023-09-06 16:53 | Emergency (ER) | payer OTHER ==
[2023-09-06 17:13] VITALS: TEMP 97.5; O2SAT 97
[2023-09-06] MEDS ORDERED: XYLOCAINE 1% HCL 20 ML MDV ONE (17:37)
[2023-09-06] MEDS ORDERED: XYLOCAINE 1% HCL 20 ML MDV IJ ONE (17:37)
[2023-09-06] MEDS ORDERED: KEFLEX 500 MG PO ONE (18:12)
[2023-09-06] MEDS ORDERED: BACIGUENT PACKET TP ONE (18:21)
--- NOTE | 2023-09-06 18:21 | ERPHSYRPT ---
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 States got it shut in a metal doorway about 30 minutes prior to coming into the ER. Triage Nursing Assessment: Patient ambulated back to ER with a red cloth wrapped around her right hand. She is alert and oriented. Cloth removed an a laceration noted towards the tip of her fourth finger. Scant amount of active bleeding. Laceration goes around half of the finger. Physician History: Patient presents to our ED for evaluation of laceration to her right ring finger. Patient states she got it shot on a metal doorway. Injury occurred just prior to arrival tetanus up-to-date. Pain described as an ache that is localized. No radiation. No other injuries reported. Patient states otherwise healthy. She voices no other complaints or concerns at this time. Portions of this note were created with voice recognition technology. There may be grammatical, spelling, punctuation or sound alike errors Timing/Duration: today Severity: moderate Modifying Factors: Improves With: movement Associated Symptoms: denies symptoms Allergies/Adverse Reactions: BEES Allergy (Intermediate, Uncoded 09/06/23 17:06) Swelling Home Medications: Pnv No.95/Ferrous Fum/Folic AC [ Multivitamin Tablet] 1 tab PO DAILY 09/06/23 [History] Hx Tetanus, Diphtheria Vaccination/Date Given: Yes Hx Influenza Vaccination/Date Given: No Hx Pneumococcal Vaccination/Date Given: No Immunizations Up to Date: Yes Travel Risk - International Travel Have you traveled outside of the country in past 3 weeks: No - Coronavirus Screening Are you exhibiting any of the following symptoms?: No Close contact with a COVID-19 positive Pt in past 14-21 Days: No - Vaccine Status Have you recieved a Covid-19 vaccination: Yes 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 - Review of Systems Constitutional: No Symptoms, No Fever, No Chills Eyes: No Symptoms Ears, Nose, & Throat: No Symptoms Respiratory: No Symptoms, No Cough, No Dyspnea Cardiac: No Symptoms, No Chest Pain, No Edema, No Syncope Abdominal/Gastrointestinal: No Symptoms, No Abdominal Pain, No Nausea, No Vomiting, No Diarrhea Genitourinary Symptoms: No Symptoms, No Dysuria Musculoskeletal: No Symptoms, No Back Pain, No Neck Pain Skin: No Symptoms, No Rash Neurological: No Symptoms, No Dizziness, No Focal Weakness, No Sensory Changes Psychological: No Symptoms Endocrine: No Symptoms Hematologic/Lymphatic: No Symptoms Immunological/Allergic: No Symptoms All Other Systems: Reviewed and Negative - Past Medical History Pertinent Past Medical History: Yes Neurological History: Seizures, Other ENT History: Glaucoma Cardiac History: No Pertinent History Respiratory History: Asthma Endocrine Medical History: No Pertinent History Musculoskeletal History: No Pertinent History GI Medical History: No Pertinent History History: Other Psycho-Social History: Anxiety, Depression, Other Female Reproductive Disorders: Other Other Medical History: brain tumor remove in September 2013. UTI's - Past Surgical History Past Surgical History: Yes Neuro Surgical History: Neurological Surgery Cardiac: No Pertinent History Respiratory: No Pertinent History Gastrointestinal: No Pertinent History Genitourinary: No Pertinent History Musculoskeletal: No Pertinent History Female Surgical History: Dilation & Curettage Other Surgical History: brain tumor remove in September 2013 - Social History Smoking Status: Current every day smoker How long have you smoked: 20 yrs Exposure to second hand smoke: Yes Drug Use: none Patient Lives Alone: No Significant Family History: no pertinent family hx - Female History Hx Last Menstrual Period: April 16, 2023 Hx Now: Yes Gestational Age: 21 weeks - Nursing Vital Signs Nursing Vital Signs: Initial Vital Signs Temperature 97.5 F 09/06/23 17:07 Pulse Rate 100 H 09/06/23 17:07 Respiratory Rate 20 09/06/23 17:07 Blood Pressure 119/68 09/06/23 17:07 O2 Sat by Pulse Oximetry 97 09/06/23 17:07 Pain Scale Pain Intensity 6 - Physical Exam General Appearance: no apparent distress, alert Eye Exam: PERRL/EOMI, eyes nml inspection Ears, Nose, Throat Exam: normal ENT inspection, TMs normal, pharynx normal, moist mucous membranes Neck Exam: normal inspection, non-tender, supple, full range of motion Respiratory Exam: normal breath sounds, lungs clear, airway intact, No respiratory distress Cardiovascular Exam: regular rate/rhythm, normal heart sounds, normal peripheral pulses Gastrointestinal/Abdomen Exam: soft, normal bowel sounds, No tenderness, No mass Back Exam: normal inspection, normal range of motion, No CVA tenderness, No vertebral tenderness Extremity Exam: normal inspection, normal range of motion, pelvis stable Neurologic Exam: alert, oriented x 3, cooperative, normal mood/affect, sensation nml, No motor deficits Skin Exam: normal color, warm, dry, No rash Lymphatic Exam: No adenopathy SpO2 Interpretation: normal SpO2: 97 O2 Delivery: Room Air Procedures - Laceration/Wound Repair Finger Time of Procedure: 18:24 Wound Location: Right (Right ring finger distal tip) Wound Length (cm): 1 Wound's Depth, Shape: irregular, contused tissue Wound Explored: clean Irrigated: Yes Hibiclens Prep: Yes Anesthesia: 1% Lidocaine Volume Anesthetic (ccs): 4 Wound Debrided: No debridement indicated Wound Repaired With: sutures Suture Size/Type: 5-0, ethilon Number of Sutures: 4 Layer Closure?: No Sterile Dressing Applied?: Yes Splint Applied?: Yes Progress: 09/06/23 18:25 Patient neurovascular intact postprocedure. Patient neurovascular tact preprocedure. No intra or postprocedural complications. Patient tolerated procedure well. - Course Nursing assessment & vital signs reviewed: Yes - Radiology Exams Other X-ray Interpretation: Interpreted by me (Fracture right ring finger) Ordered Tests: Active Orders 24 hr Category Date Time Status FINGER(S) Stat Exams 09/06/23 17:27 Taken Medication Summary Discontinued Medications Generic Name Dose Route Start Last Admin Trade Name Freq PRN Reason Stop Dose Admin Bacitracin Zinc 0.9 each 09/06/23 18:21 Bacitracin Packet 1 Each Pckt TP 09/06/23 18:22 STAT ONE Bacitracin Zinc Confirm 09/06/23 18:22 Bacitracin Packet 1 Each Pckt Administered 09/06/23 18:23 Dose 1 each .ROUTE .STK-MED ONE Cephalexin HCl 500 mg 09/06/23 18:12 Cephalexin Mh500 Mg Capsule PO 09/06/23 18:13 STAT ONE Lidocaine HCl 4 ml 09/06/23 17:37 Lidocaine Hcl 1% 20 Ml Mdv 20 Ml Ml IJ 09/06/23 17:38 STAT ONE Lidocaine HCl Confirm 09/06/23 17:37 Lidocaine Hcl 1% 20 Ml Mdv 20 Ml Ml Administered 09/06/23 17:38 Dose 4 ml .ROUTE .STK-MED ONE - Progress Progress: improved Progress Note: 33-year-old female presents to our ED with a laceration to the distal tip of the right ring finger. Patient injured her finger on a steel frame doorway. X-ray reveals a tuft fracture. This is considered an open fracture. Patient received Keflex oral antibiotic while in our ED. A prescription for the same was forwarded to patient's pharmacy. The laceration was repaired using 4 simple interrupted Ethilon sutures. Patient tolerated procedure well. Patient neurovascular tact post procedure. Patient will be referred to a hand surgeon. Portions of this note were created with voice recognition technology. There may be grammatical, spelling, punctuation or sound alike errors Complexity of problems addressed is moderate acute complicated No critical care time Complex of data reviewed and analyzed is moderate. X-ray ordered x-ray dependently reviewed by Dr. Boykin. Results correlated clinically with history and physical exam. Risk complication and a risk morbidity/mortality of patient management is moder ate. A prescription for Keflex was forwarded to patient's pharmacy. A prescription for Toradol also forwarded to patient's pharmacy. Vital stable. Time to discharge patient is approximately 15 minutes. Plan of care established for shared decision making. No social determinants of health present impede follow-up. Portions of this note were created with voice recognition technology. There may be grammatical, spelling, punctuation or sound alike errors 09/06/23 18:26 Counseled pt/family regarding: diagnosis, need for follow-up, rad results - Departure Departure Disposition: Home Clinical Impression: Laceration, Closed fracture of tuft of distal phalanx of finger Condition: Stable Critical Care Time: No Referrals: GHISLAINE DSOUZA [Primary Care Provider] - Follow up/PCP as directed Additional Instructions: Discharge/Care Plan AL SWAIN was seen on 09/06/23 in the Emergency Room. The patient was counseled regarding Diagnosis,Lab results, Imaging studies, need for follow up and when to return to the Emergency Room. Prescriptions given: Discharge Note I have spoken with the patient and/or caregivers. I have explained the patient's condition, diagnosis and treatment plan based on the information available to me at this time. I have answered the patient's and/or caregiver's questions and addressed any concerns. The patient and/or caregivers have as good understanding of the patient's diagnosis, condition and treatment plan as can be expected at this point. The vital signs have been stable. The patient's condition is stable and appropriate for discharge from the emergency department. The patient will pursue further outpatient evaluation with the primary care physician or other designated or consulting physician as outlined in the discharge instructions. The patient and/or caregivers are agreeable to this plan of care and follow-up instructions have been explained in detail. The patient and/or caregivers have received these instruction. The patient/and or caregivers are aware that any significant change in condition or worsening of symptoms should prompt an immediate return to this or the closest emergency department or call 911. Prescriptions: Cephalexin Mh 500 mg [Keflex 500 mg] 500 mg PO TID #21 cap
[2023-09-06] MEDS ORDERED: BACIGUENT PACKET ONE (18:22)
[2023-09-06] MEDS ORDERED: KEFLEX 500 MG ONE (18:33)
[2023-09-06 18:37] VITALS: BP 110/64; PULSE 90; RESP 17
--- NOTE | 2023-09-07 08:48 | XRAY ---
Indication: Laceration. Comparison: None 3 view right 4th finger demonstrates minimally displaced comminuted tuft fracture with soft tissue swelling/laceration. No other bony, articular, or soft tissue abnormalities.
== END 2023-09-06 18:50 | disposition home or self-care (01) ==
LOC: ED 16:53
DX: S62.634B Displaced fracture of distal phalanx of right ring finger, initial encounter for open fracture (principal); W23.0XXA Caught, crushed, jammed, or pinched between moving objects, initial encounter; Z79.899 Other long term (current) drug therapy; Z72.0 Tobacco use
CPT/HCPCS: 12001; 73140; 96372; 99283; A9270-GY

== ENCOUNTER 2023-09-11 02:24 | Emergency (ER) | payer OTHER ==
--- NOTE | 2023-09-11 02:37 | ERPHSYRPT ---
- History of Present Illness Time Seen by Provider: 09/11/23 02:36 Source: patient Exam Limitations: no limitations Physician History: pt is 22 weeks following with OB and has few days hx of cough and ST. bilateral ear pain , but TMs appear normal. Does not appear SOBreath. No vomiting, some decreased appetite. Pharynx with some erythema , swallowing in ER [place]. Chest clear without wheezes or stridor. Ht reg without M. No abdominal pain, no vag bleeding or DC. nontender. discussed risk/benefits of testing with swabs for covid/RSV, Strep and Flu and pt wishes to proceed. These are ordered. Results discussed. 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 - Review of Systems Constitutional: No Fever, No Chills Eyes: No Symptoms Ears, Nose, & Throat: No Symptoms, Nose Congestion Respiratory: Cough, No Dyspnea Cardiac: No Chest Pain, No Edema, No Syncope Abdominal/Gastrointestinal: No Abdominal Pain, No Nausea, No Vomiting, No Diarrhea Genitourinary Symptoms: No Dysuria Musculoskeletal: No Back Pain, No Neck Pain Skin: No Rash Neurological: No Dizziness, No Focal Weakness, No Sensory Changes Psychological: No Symptoms Endocrine: No Symptoms Hematologic/Lymphatic: No Symptoms Immunological/Allergic: No Symptoms All Other Systems: Reviewed and Negative - Past Medical History Pertinent Past Medical History: Yes Neurological History: Seizures, Other ENT History: Glaucoma Cardiac History: No Pertinent History Respiratory History: Asthma Endocrine Medical History: No Pertinent History Musculoskeletal History: No Pertinent History GI Medical History: No Pertinent History History: Other Psycho-Social History: Anxiety, Depression, Other Female Reproductive Disorders: Other Other Medical History: brain tumor remove in September 2013. UTI's - Past Surgical History Past Surgical History: Yes Neuro Surgical History: Neurological Surgery Cardiac: No Pertinent History Respiratory: No Pertinent History Gastrointestinal: No Pertinent History Genitourinary: No Pertinent History Musculoskeletal: No Pertinent History Female Surgical History: Dilation & Curettage Other Surgical History: brain tumor remove in September 2013 - Social History Smoking Status: Current every day smoker How long have you smoked: 20 yrs Exposure to second hand smoke: Yes Drug Use: none Patient Lives Alone: No Significant Family History: no pertinent family hx - Nursing Vital Signs Nursing Vital Signs: Initial Vital Signs Temperature 98.7 F 09/11/23 02:37 Pulse Rate 110 H 09/11/23 02:37 Respiratory Rate 18 09/11/23 02:37 Blood Pressure 122/79 09/11/23 02:37 O2 Sat by Pulse Oximetry 99 09/11/23 02:37 Pain Scale Pain Intensity 0 - Physical Exam General Appearance: no apparent distress, alert Eye Exam: PERRL/EOMI, eyes nml inspection Ears, Nose, Throat Exam: normal ENT inspection, TMs normal, moist mucous membranes, pharyngeal erythema Neck Exam: normal inspection, non-tender, supple, full range of motion Respiratory Exam: normal breath sounds, lungs clear, airway intact, No respiratory distress Cardiovascular Exam: regular rate/rhythm, normal heart sounds Gastrointestinal/Abdomen Exam: soft, No tenderness Back Exam: normal inspection, No CVA tenderness, No vertebral tenderness Extremity Exam: normal inspection, normal range of motion Neurologic Exam: alert, oriented x 3, cooperative, normal mood/affect, sensation nml, No motor deficits Skin Exam: normal color, warm, dry, No rash Lymphatic Exam: No adenopathy - Course Nursing assessment & vital signs reviewed: Yes Lab/Rad Data: Laboratory Results 09/11/23 09/11/23 Range/Units 03:02 03:02 Influenza Type A Ag NEGATIVE (NEGATIVE) Influenza Type B Ag NEGATIVE (NEGATIVE) RSV (PCR) NEGATIVE (NEGATIVE) SARS-CoV-2 (PCR) POSITIVE A (NEGATIVE) Group A Strep Antibody NOT DETECTED (NEGATIVE) - Progress Progress: improved, re-examined Air Movement: good Progress Note: 09/11/23 04:23 discussed risks increased in with COvid and need for close OB f/u and signs to look for such as with blood clots, as well as risks with covid meds, and a variety of covid txs and from anticoagulation or other measures, and she agrees since her O2 is good she would hold off on any of these Txs for now. She has the capacity to make this choice. 09/11/23 04:26 SHe is not short of breath and has a good pulse ox 98-99 on RA. 09/11/23 04:27 HR is back down in the 90s when resting. Blood Culture(s) Obtained: No Antibiotics given: No Counseled pt/family regarding: lab results, diagnosis, need for follow-up Medical Desision Making - Discussion of managment Reviewed:: Test results, Need for additional workup Agreed on:: Treatment plan, need for follow-up - Diagnostic Testing Diagnostic test were ordered, analyzed, and reviewed by me: Yes Radiological Interpretation: Reviewed by me - Risk of complications The pt has a mod risk of morbidity or mortality based on: Need for prescription drug management - Departure Departure Disposition: Home Clinical Impression: Covid in Condition: Good Critical Care Time: No Referrals: GHISLAINE DSOUZA [Primary Care Provider] - Follow up/PCP as directed Instructions: COVID-19 and (DC), COVID-19 (DC) Additional Instructions: followup with your OB for close follow-up due to your increased risks for complications such as blood clots. Follow the recommended self-quarantine measures and use a mask as well. return meantime if short of breath or any other concerns.
[2023-09-11 02:56] VITALS: RESP 16; TEMP 98.7
[2023-09-11 03:40] LABS: INFLUENZA A NEGATIVE (NEGATIVE); INFLUENZA B NEGATIVE (NEGATIVE); RESPIRATORY SYNCTIAL VIRUS NEGATIVE (NEGATIVE)
[2023-09-11 03:59] LABS: SARS-CoV-2 Xpert Express POSITIVE (NEGATIVE)
[2023-09-11 04:05] VITALS: PULSE 104
[2023-09-11 04:34] VITALS: BP 105/70; O2SAT 99
== END 2023-09-11 04:41 | disposition home or self-care (01) ==
LOC: ED 02:24
DX: O98.512 Other viral diseases complicating pregnancy, second trimester (principal); U07.1 COVID-19; Z3A.22 22 weeks gestation of pregnancy; R05.1 Acute cough; J02.9 Acute pharyngitis, unspecified; H92.03 Otalgia, bilateral; Z72.0 Tobacco use
CPT/HCPCS: 0241U; 87651; 99283